=== PATIENT | female | born 1980 | race Caucasian/White ===

== ENCOUNTER → 2016-12-12 | Outpatient (REF) | payer BC | LOC: M LAB REF 11:35 | PROVIDERS: ATTEND Specialist | DX: Z12.4 Encounter for screening for malignant neoplasm of cervix (principal) ==

== ENCOUNTER → 2016-12-25 | Outpatient (REF) | payer BC ==
[2016-12-25 13:16] LABS: ALBUMIN 3.9 GM/DL (3.2-5.2); CALCIUM LEVEL 8.8 MG/DL (8.5-10.1)
== END ==
LOC: M LABDRAW1 11:44
PROVIDERS: ATTEND Internal Medicine Endocrinology, Diabetes & Metabolism
DX: C73 Malignant neoplasm of thyroid gland (principal)

== ENCOUNTER → 2017-03-03 | Outpatient (REF) | payer BC | LOC: M LAB REF 13:08 | PROVIDERS: ATTEND Physician Assistant | DX: R30.0 Dysuria (principal) ==

== ENCOUNTER → 2017-04-01 | Outpatient (REF) | payer BC, MEDICAID, SELFPAY ==
[2017-04-01 12:14] LABS: FREE T4 1.15 NG/DL (0.76-1.46)
== END ==
LOC: M LABDRAW1 10:55
PROVIDERS: ATTEND Internal Medicine Endocrinology, Diabetes & Metabolism
DX: E55.9 Vitamin D deficiency, unspecified (principal); E89.0 Postprocedural hypothyroidism

== ENCOUNTER → 2017-06-17 | Outpatient (REF) | payer OTHER | LOC: M LAB REF 12:22 | PROVIDERS: ATTEND Physician Assistant | DX: N39.0 Urinary tract infection, site not specified (principal) ==

== ENCOUNTER → 2017-06-19 | Outpatient (CLI) | payer OTHER ==
[2017-06-19 19:24] LABS: LUTEINIZING HORMONE 42.4 mIU/mL
[2017-06-22 09:11] LABS: FOLLICLE STIMULATING HORMONE 97.8 mIU/mL
== END ==
LOC: M SMT 11:22
PROVIDERS: ATTEND Specialist
DX: N91.1 Secondary amenorrhea (principal)

== ENCOUNTER → 2018-03-18 | Outpatient (REF) | payer OTHER | LOC: M SFHCLERA 09:02 | DX: L82.0 Inflamed seborrheic keratosis (principal) ==

== ENCOUNTER → 2018-08-24 | Outpatient (REF) | payer OTHER ==
[2018-08-24 11:59] LABS: FREE T4 0.86 NG/DL (0.76-1.46)
== END ==
LOC: M LABDRAW1 10:45
DX: E89.0 Postprocedural hypothyroidism (principal)
CPT/HCPCS: 84443

== ENCOUNTER → 2018-09-15 | Outpatient (REF) | payer OTHER ==
[2018-09-15 19:42] LABS: RHEUMATOID FACTOR QUANT < 10.0 IU/ML (<15.0)
[2018-09-15 19:53] LABS: TOTAL 25(OH) VITAMIN D 28.1 NG/ML (30.0-100.0)
[2018-09-18 00:26] LABS: ANA (HEP2) Positive (.); Lyme Disease IgG/IgM Antibodie <0.91 ISR (0.00-0.90); Lyme Disease IgM Ab Quantitati <0.80 index (0.00-0.79)
== END ==
LOC: M SFHCADAM 15:14
PROVIDERS: ATTEND Physician Assistant
DX: G89.29 Other chronic pain (principal); M54.2 Cervicalgia

== ENCOUNTER → 2018-10-14 | Outpatient (REF) | payer OTHER ==
[2018-10-14 16:20] LABS: THYROID STIMULATING HORMONE 0.295 uIU/ML (0.358-3.740)
[2018-10-14 16:34] LABS: ESTRADIOL 52.4 PG/ML; LUTEINIZING HORMONE 52.6 mIU/mL
[2018-10-14 16:35] LABS: FOLLICLE STIMULATING HORMONE 86.2 mIU/mL
== END ==
LOC: M LABDRAWP 15:47 → M LAB REF 15:47
PROVIDERS: ATTEND Internal Medicine Endocrinology, Diabetes & Metabolism
DX: C73 Malignant neoplasm of thyroid gland (principal)

== ENCOUNTER → 2018-10-18 | Outpatient (CLI) | payer OTHER ==
--- NOTE | 2018-10-18 12:47 | REP ---
MR CERVICAL SPINE WITHOUT CONTRAST: HISTORY: Cervicalgia. A small central disc protrusion is present at the C4-5 level. There is minimal effacement of the thecal sac without spinal cord compression. The C4 neural foramina are patent. A small central disc protrusion is present at the C5-6 level. There is minimal effacement of the thecal sac without spinal cord compression. The C5 neural foramina are patent A small central disc protrusion is present at the C6-7 level. There is minimal effacement of the thecal sac without spinal cord compression. The C7 neural foramina are patent. There is no other disc bulge or herniation. The remaining neural foramina are patent. The spinal cord is normal in signal intensity. Normal signal intensity is present in the cervical vertebral bodies. IMPRESSION: There is cervical spondylosis at the C4-5 through C6-7 levels without spinal cord compression. ? Electronically Signed by Isaac Woods MD 10/18/2018 01:09 P
== END ==
LOC: M RAD 10:58
PROVIDERS: ATTEND Physician Assistant
DX: R76.8 Other specified abnormal immunological findings in serum (principal); M47.812 Spondylosis without myelopathy or radiculopathy, cervical region; M54.2 Cervicalgia

== ENCOUNTER → 2019-01-24 | Outpatient (REF) | payer OTHER ==
[2019-01-24 12:08] LABS: APPEARANCE, URINE HAZY (CLEAR); BACTERIA, URINE AUTO NEGATIVE (NEGATIVE); BILIRUBIN, URINE AUTO NEGATIVE (NEGATIVE); BLOOD, URINE BLOOD NEGATIVE (NEGATIVE); COLOR, URINE YELLOW (YELLOW); GLUCOSE, URINE (UA) AUTO NEGATIVE (NEGATIVE); KETONE, URINE AUTO NEGATIVE (NEGATIVE); LEUKOCYTE ESTERASE, URINE AUTO NEGATIVE (NEGATIVE); NITRITE, URINE AUTO NEGATIVE (NEGATIVE); PROTEIN, URINE AUTO NEGATIVE (NEGATIVE); RBC, URINE AUTO 2 /HPF (0-3); SPECIFIC GRAVITY URINE AUTO 1.017 (1.002-1.035); SQUAMOUS EPITHELIAL CELL UR AU 2 /HPF (0-6); UROBILINOGEN, URINE AUTO 0.2 mg/dL (0.0-2.0); WBC, URINE AUTO 1 /HPF (0-3)
[2019-01-24 12:13] LABS: BASO % 0.7 % (0.0-1.0); EOS # 0.1 10^3/uL (0.0-0.50); EOS % 1.8 % (0.0-3.0); HEMATOCRIT 41.2 % (36.0-47.0); LYMPH # 1.2 10^3/uL (1.5-4.5); LYMPH % 25.8 % (24.0-44.0); MEAN CORPUSCULAR HEMOGLOBIN 30.4 pg (27.0-33.0); MEAN CORPUSCULAR VOLUME 89.6 fl (80.0-96.0); MONO # 0.3 10^3/uL (0.0-0.8); NEUTROPHILS # 2.9 10^3/uL (1.8-7.7); NEUTROPHILS % 65.5 % (36.0-66.0); PLATELET COUNT, AUTOMATED 171 10^3/uL (150-450); WHITE BLOOD COUNT 4.5 10^3/uL (4.0-10.0)
[2019-01-24 12:18] LABS: ALBUMIN 4.3 GM/DL (3.2-5.2); ALT/SGPT 17 U/L (12-78); BILIRUBIN,TOTAL 1.3 MG/DL (0.2-1.0); BLOOD UREA NITROGEN 16 MG/DL (7-18); CALCIUM LEVEL 8.7 MG/DL (8.5-10.1); CARBON DIOXIDE LEVEL 27 MEQ/L (21-32); CHLORIDE LEVEL 106 MEQ/L (98-107); COMPLEMENT C3 102 MG/DL (90-180); COMPLEMENT C4 17 MG/DL (10-40); CREATININE FOR GFR 0.69 MG/DL (0.55-1.30); GLOMERULAR FILTRATION RATE > 60.0 (>60); GLUCOSE, FASTING 81 MG/DL (70-100); POTASSIUM SERUM 3.9 MEQ/L (3.5-5.1); SODIUM LEVEL 139 MEQ/L (136-145); TOTAL PROTEIN 7.3 GM/DL (6.4-8.2)
[2019-01-24 12:59] LABS: ERYTHROCYTE SEDIMENTATION RATE 8 mm/hr (0-20)
[2019-01-25 14:13] LABS: RNP ANTIBODY 0.2 AI (0.0-0.9); SMITHS ANTIBODY < 0.2 AI (0.0-0.9); SSA SJOGRENS A <0.2 AI (0.0-0.9); SSB SJOGRENS B <0.2 AI (0.0-0.9)
== END ==
LOC: M SFHCPLAZ 09:59
PROVIDERS: ATTEND Internal Medicine Rheumatology
DX: R76.8 Other specified abnormal immunological findings in serum (principal)

== ENCOUNTER → 2019-04-08 | Outpatient (REF) | payer OTHER ==
[2019-04-08 11:59] LABS: FREE T4 0.82 NG/DL (0.76-1.46); THYROID STIMULATING HORMONE 0.083 uIU/ML (0.358-3.740)
== END ==
LOC: M LABDRAW1 08:42
PROVIDERS: ATTEND Internal Medicine Endocrinology, Diabetes & Metabolism
DX: E89.0 Postprocedural hypothyroidism (principal)

== ENCOUNTER → 2019-05-09 | Outpatient (CLI) | payer OTHER ==
--- NOTE | 2019-05-09 14:47 | REP ---
REASON: Pain. PRIORS: None. FINDINGS: No acute fracture or destructive osseous lesion. There is a minimal retrocalcaneal heel spur. Electronically Signed by Alcon De La Torre DO 05/09/2019 04:47 P
== END ==
LOC: M ADAMS 11:43
PROVIDERS: ATTEND Physician Assistant
DX: M79.672 Pain in left foot (principal)

== ENCOUNTER → 2019-08-11 | Outpatient (CLI) | payer OTHER ==
[2019-08-16 14:07] LABS: HPV HYBRID CAPTURE II Negative (Negative)
== END ==
LOC: M SMT 08:55
PROVIDERS: ATTEND Specialist
DX: Z12.4 Encounter for screening for malignant neoplasm of cervix (principal)

== ENCOUNTER → 2019-08-15 | Outpatient (CLI) | payer OTHER ==
--- NOTE | 2019-08-15 09:28 | REPMRS ---
Patient History The patient states she had a clinical breast exam in 2018. Family history of breast cancer at age 65 in mother, breast cancer at age 48 in maternal aunt, breast cancer in maternal grandmother, prostate cancer at age 45 in father, prostate cancer in paternal grandfather. Taking unspecified hormones for 6 years. 3D TOMOSYNTHESIS WAS PERFORMED. Digital Mammo Screening Bilat: August 15, 2019 - Exam #: [id number] Bilateral CC and MLO view(s) were taken. Technologist: Meena Hdz, Technologist FINDINGS: The breast tissue is heterogeneously dense. This may lower the sensitivity of mammography. There is no evidence of cancer on this mammogram. Assessment: BI-RADS/ACR category 2 mammogram. Benign Findings. Recommendation Routine screening mammogram of both breasts in 1 year (for women over age 40). This mammogram was interpreted with the aid of an FDA-approved computer-aided dectection system. THE LIFETIME RISK OF BREAST CANCER IS 28.7%, THEREFORE SUPPLEMENTAL SCREENING MRI OF THE BREASTS IS RECOMMENDED IN 6 MONTHS. Electronically Signed By: Tommy Finch MD 08/15/19 0902
== END ==
LOC: M RAD 08:51
PROVIDERS: ATTEND Specialist
DX: Z12.31 Encounter for screening mammogram for malignant neoplasm of breast (principal); Z80.3 Family history of malignant neoplasm of breast; Z79.890 Hormone replacement therapy; R92.2 Inconclusive mammogram

== ENCOUNTER → 2019-09-01 | Outpatient (CLI) | payer OTHER ==
--- NOTE | 2019-09-09 02:55 | ECWPNPC ---
PATIENT NAME: ULISES TEJADA : 1980 GENDER: FEMALE VISIT DATE: 09/01/2019 DISCHARGE DATE: 09/01/19 1150 VISIT LOCKED DATE TIME: PHYSICIAN: BRANDON TORRE RESOURCE: BRANDON TORRE REASON FOR APPOINTMENT 1. CERVICALGIA PREADMISSION DONE HISTORY OF PRESENT ILLNESS PAIN SCREENIN38 Y/O FEMALE REFERED BY RADHA LEY FOR EVALUATION OF PERSISTENT POSTERIOR NECK BURNING,ACHING AND STABBING PAIN.FINISHED A SESSION OF PT ONE MONTH AGO THAT HELPED WITH ROJM OF NECK BUT SHE FEELS BURNING PAIN HAS GOTTEN WORSE OVER THE PAST FEW MONTHS.PAIN ESCALATES WHEN LAYING IN SUPINE POSITION AND WITH FLEXION OF NECK.SHE HAS AN AREA OF SWELLING AT BASE OF NECK THAT SHE FEELS HAS GOTTEN MORE PROMINENT OVER THE PAST YEAR.USING FLEXERIL ,5MG PRN WITHOUT MUCH IMPROVEMENT.PAIN RANGES FROM 4-8/10 VAS.DENIES RECENT FEVER,ILLNESS OR WEIGHT LOSS. PATIENT HAS A COMPLAINT OF ACUTE OR CHRONIC PAIN :YES FALL RISK SCREENING: SCREENING :NO FALLS REPORTED IN THE LAST YEAR CURRENT MEDICATIONS TAKING VITAMIN D-3 1000 UNIT CAPSULE 3 CAPSULE ORALLY ONCE A DAY TAKING ARMOUR THYROID 90 MG TABLET 1 TABLET ON AN EMPTY STOMACH ORALLY ONCE A DAY TAKING CYCLOBENZAPRINE HCL 5 MG TABLET 1 TABLET NEEDED ORALLY THREE TIMES A DAY NEEDED FRO NECK PAIN TAKING CALCIUM 1200 4304-9765 MG-UNIT TABLET CHEWABLE 1 TABLET WITH A MEAL ORALLY ONCE A DAY MEDICATION LIST REVIEWED AND RECONCILED WITH THE PATIENT PAST MEDICAL HISTORY HEADACHES (IMPROVED SINCE STOPPING ORTHO EVRA PATCH) MULTINODULAR THYROID/GOITER , THYROID ULTRASOUND 12/09/11 MULTINODULAR THYROID/ BIOPSY 07/09(DR RAZA) SUGGESTED BACKGROUND LYMPHOCYTIC THYROIDITIS. RECOMMENDED REPEAT ULTRASOUND AND BIOPSY ONE YEAR (07/10). [facility] SECOND OPINION - UNDERWENT THYROIDECTOMY FAMILY H/O MELANOMA - MOTHER/AUNT HYPOTHYROIDISM DUE TO THYROIDECTOMY ALLERGIES SUMAC: ANAPHYLAXIS - ALLERGY SURGICAL HISTORY 05/2008, 01/2012 ALL FOUR WISDOM TEETH EXTRACTED 1998 THYROID BX-NEGATIVE 07/09 ABLASION-UTERUS 2014 THYROIDECTOMY FAMILY HISTORY FATHER: ALIVE 61 YRS, SQUAMOUS CELL CARCINOMA MOUTH, THYROID CANCER, PROSTATE CANCER MOTHER: ALIVE 61 YRS, HYPOTHYROIDISM, MELANOMA ON FACE SIBLINGS: 35,38 YRS MATERNAL AUNT: BREAST CANCER MELANOMA 2 BROTHER(S) - HEALTHY. 1 SON(S) , 1 DAUGHTER(S) - HEALTHY. FAMILY HISTORY OF MM. SOCIAL HISTORY GENERAL: TOBACCO USE ARE YOU A:FORMER SMOKER FORMER SMOKER HOW LONG HAS IT BEEN SINCE YOU LAST SMOKED?5-10 YEARS DIET: REGULAR. LANGUAGE YORUBA. DOMESTIC VIOLENCE NONE. RECREATIONAL DRUG USE DENIES. EXERCISE: NONE. LEARNING BARRIERS / SPECIAL NEEDS CHANGE FROM LAST VISIT?NO BARRIERS TO LEARNING?NO HEARING IMPAIRED?NO VISION IMPAIRED?NO COGNITIVELY IMPAIRED?NO READINESS TO LEARN?YES LEARNING PREFERENCES?NO LEARNING CAPABILITIES PRESENT?YES EMOTIONAL BARRIERS?NO SPECIAL DEVICES?NO OBSTETRICS NURSE PRACTITIONER NEEDED?NO LATEX QUESTIONNAIRE LATEX ALLERGY : HAVE YOU EVER DEVELOPED ANY TYPE OF REACTION AFTER HANDLING LATEX PRODUCTS SUCH RUBBER GLOVES, CONDOMS, DIAPHRAGMS, BALLOONS, SOCKS, OR UNDERWEAR?NO LATEX ALLERGY : HAVE YOU EVER DEVELOPED ANY TYPE OF REACTION DURING OR AFTER DENTAL APPOINTMENT, VAGINAL/RECTAL EXAMINATION, SURGICAL PROCEDURE, OR ANY OTHER EXPOSURE?NO LATEX RISK : HAVE YOU EVER HAD ANY DIFFICULTY BREATHING OR HIVES AFTER EATING OR HANDLING ANY FRUITS, OR VEGETABLES; SUCH KIWI, BANANAS, STONE FRUITS, OR CHESTNUTSNO LATEX RISK : DO YOU HAVE A PREVIOUS PERSONAL HISTORY OF MORE THAN NINE SURGERIES, SPINA BIFIDA, OR REPEATED CATHERIZATIONS? NO LATEX RISK : ARE YOU FREQUENTLY EXPOSED TO LATEX PRODUCTS IN YOUR OCCUPATION?NO DATE ASKED : 08/31/2019 CAFFEINE NONE. ADVANCE DIRECTIVE ADVANCE DIRECTIVE DISCUSSED WITH PATIENT:YES PT STATES THAT SHE CURRENTLY DOES NOT HAVE HCP, DECLINES PAPERWORK AND ASSISTANCE WITH PAPERWORK. DS SCIENTOLOGY NO RESTORATIONIST BELIEFS THAT WOULD IMPACT HEALTH CARE. ALCOHOL SCREENING DID YOU HAVE A DRINK CONTAINING ALCOHOL IN THE PAST YEAR?NO POINTS0 INTERPRETATIONNEGATIVE OCCUPATION: FT STUDENT, [employer]. SEXUAL HX HAD SEX IN THE LAST 12 MONTHS (VAGINAL, ORAL, OR ANAL)?YES WITHMEN ONLY USE PROTECTION?NO LMP:2014 HAVE YOU EVER HAD AN STD?NO PREADMISSION SCREENING COMPLETED. 08/31/19 DS. HOSPITALIZATION/MAJOR DIAGNOSTIC PROCEDURE CHILDBIRTH SURGERY REVIEW OF SYSTEMS REVIEWED BY: PROVIDER: BRANDON LAZARO . CONSTITUTIONAL: ANY CHANGE IN YOUR MEDICAL CONDITION? NO . CHILLS NO . FEVER NO . INFECTION: DO YOU HAVE NEW INFECTIONS? NO . DO YOU HAVE HISTORY OF MRSA? NO . MUSCULOSKELETAL: ANY NEW PATTERNS OF PAIN OR NUMBNESS? YES, BILAT HAND NUMBNESS X 1 DAY . SYTEMIC LUPUS NO . GASTROENTEROLOGY: ANY NEW CHANGE IN BOWEL CONTROL? NO . BARRETTS ESOPHAGUS NO . CIRRHOSIS NO . HEPATITIS NO . LIVER FAILURE NO . ACID REFLUX NO . UNEXPLAINED WEIGHT LOSS NO . GENITOURINARY: ANY NEW CHANGE IN BLADDER CONTROL? NO . IS THERE A CHANCE YOU COULD BE ? NO . HEMATOLOGY/LYMPH: DO YOU TAKE ANY BLOOD THINNERS? (FOR EXAMPLE- COUMADIN, PLAVIX, AGGRENOX, PLATEL, PRADAXA, OR XARELTO) NO . WHEN WAS YOUR LAST DOSE? DATE: TIME: . LOW PLATELET COUNT NO . SICKLE CELL DISEASE NO . VON WILLIEBRANDS NO . FACTOR V LEIDEN NO . THALLASEMIA NO . ANEMIA NO . EASY BRUISING NO . NEUROLOGY: HAVE YOU FALLEN IN THE PAST 12 MONTHS? NO . ANY NEW EXTREMITY NUMBNESS OR WEAKNESS? NO . HEAD INJURY NO . DEMENTIA NO . CEREBRAL PALSY NO . MULTIPLE SCLEROSIS NO . DIZZINESS NO . HEADACHE NO . STROKES NO . VERTIGO NO . CARDIOLOGY: DO YOU HAVE A PACEMAKER OR DEFIBRILLATOR? NO . ANGINA NO . HEART ATTACK NO . HEART SURGERY NO . CONGESTIVE HEART FAILURE/FLUID OVERLOAD NO . CHEST PAIN NO . HIGH BLOOD PRESSURE NO . IRREGULAR HEART BEAT NO . RESPIRATORY: HAVE YOU BEEN SICK IN THE PAST WEEK? NO . FEVER NO . FLU LIKE SYMPTOMS? NO . CPAP NO . BYPAP NO . ASTHMA NO . EMPHYSEMA NO . CHRONIC LUNG DISEASES NO . SHORTNESS OF BREATH ON EXERTION NO . COUGH NO . SNORING NO . INTEGUMENTARY: DO YOU HAVE ANY RASHES OR OPEN SORES? NO . ALLERGIC/IMMUNO: ARE YOU ALLERGIC TO IV DYE? NO . ANY NEW ALLERGIES? NO . PSYCHIATRIC: DO YOU HAVE THOUGHTS OF HURTING YOURSELF OR SOMEONE ELSE? NO . ARE YOU ABUSED, NEGLECTED, OR IN AN UNSAFE ENVIRONMENT? NO . ENDOCRINOLOGY: ARE YOU DIABETIC? NO . THYROID DISORDER HYPOTHYROID, YES . OTHER: DO YOU NEED ANY PRESCRIPTIONS? NO . IF YES, PLEASE LIST: ____ . ANY NEW PROBLEMS WITH YOUR MEDICATIONS? NO . WHEN DID YOU LAST EAT? ____ . WHEN DID YOU LAST DRINK? ____ . WHAT DID YOU LAST DRINK? ____ . NAME OF PERSON DRIVING YOU HOME? ____ . DO YOU HAVE ANY OTHER QUESTIONS OR CONCERNS YES, RECEIVED FLU VACCINE 08/14/19 . VITAL SIGNS WT 172 LBS, HT 68.5 IN, BMI 25.77 INDEX, BP 113/71 MM HG, HR 68 /MIN, RR 16 /MIN, TEMP 98.1 F, OXYGEN SAT % 100%, NA INITIALS SC 11:04. EXAMINATION GENERAL EXAMINATION: GENERALNO ACUTE DISTRESS, WELL NOURISHED AND HYDRATED. ACCOMPANIES IN EXAM ROOM. PSYCHAPPROPRIATE MOOD AND AFFECT . NECK:NO LYMPHADENOPATHY, SUPPLE, NO THYROMEGALLY, NO JVD OR BRUITS. LUNGS:CLEAR TO AUSCULTATION BILATERALLY, NO WHEEZES, RHONCHI, RALES. HEART:NO MURMURS, REGULAR RATE AND RHYTHM. ABDOMEN:SOFT, NON-TENDER, NO ORGANOMEGALY, BOWEL SOUNDS ARE NORMAL. THORACIC SPINE 6 CM CIRCULAR AREA OF SWELLING AT CERVICOTHORACIC [id number].NONMOBILE.NO REDDNESS.PETECHIAL STRIAE OVER MASS.TENDER WITH PALPATION. ASSESSMENTS THORACIC SPINE PAIN - M54.6 (PRIMARY) TREATMENT THORACIC SPINE PAIN NOTES: MRI POSTERIOR CHEST WALL W AND W/O CONTRAST-ATTN SOFT TISSUE SWELLING UPPER THORACIC . PROCEDURE CODES FA211 ESTABILISHED PATIENT [facility] CHARGE DISPOSITION & COMMUNICATION FOLLOW UP 4-6 WKS (REASON: MRI REVIEW) ELECTRONICALLY SIGNED BY IVETH CHOW ON 09/08/2019 AT 09:02 AM EST DISCLAIMER : THIS IS A VISIT SUMMARY EXTRACTED FROM THE [employer] CHART. IT IS NOT A COPY OF THE [employer] PROGRESS NOTE. OWEN
== END ==
LOC: M PAIN 10:00
PROVIDERS: ATTEND Nurse Practitioner Family
DX: M54.6 Pain in thoracic spine (principal); E03.9 Hypothyroidism, unspecified; Z87.891 Personal history of nicotine dependence; Z79.899 Other long term (current) drug therapy

== ENCOUNTER → 2019-09-09 | Outpatient (CLI) | payer OTHER ==
--- NOTE | 2019-09-09 11:30 | REP ---
Three views thoracic spine: 09/26/2019. Indication: Thoracic pain. Comparison: None. Findings: Thoracic vertebral body alignment is anatomic. There is no acute fracture, subluxation or dislocation. Distended colonic bowel loops are present, particularly within the splenic flexure with slight elevation of the left hemidiaphragm. The visualized lungs are clear. Impression: No acute osseous injuries of the thoracic spine. Gaseous distension of predominantly left-sided colonic bowel loops. Electronically Signed by Chetan Lopez DO 09/09/2019 11:21 A
== END ==
LOC: M RAD 09:16
PROVIDERS: ATTEND Nurse Practitioner Family
DX: M79.89 Other specified soft tissue disorders (principal); R14.0 Abdominal distension (gaseous)

== ENCOUNTER → 2019-09-15 | Outpatient (CLI) | payer OTHER ==
--- NOTE | 2019-09-30 01:51 | ECWPNPC ---
PATIENT NAME: ULISES TEJADA : 1980 GENDER: FEMALE VISIT DATE: 09/15/2019 DISCHARGE DATE: 09/15/19 1401 VISIT LOCKED DATE TIME: PHYSICIAN: BRANDON TORRE RESOURCE: BRANDON TORRE REASON FOR APPOINTMENT 1. REVIEW X-RAY HISTORY OF PRESENT ILLNESS HISTORY OF PRESENT ILLNESS: HERE FOR F/U OF CHRONIC NECK PAIN.XRAY OF THORACIC SPINE ORDERED AT LAST VISIT IS REVIEWED WITH PATIENT AND IS WITHIN NORMAL LIMITS.CONTINUES WITH BURNING PAIN IN C7/T1-4 AREA(CERVICOTHORACIC JUNCTION)RATING PAIN VAS 5-8/10.PAIN IS AT CERVICOTHORACIC JUNCTION AND DESCRIBED INTERMITTENT BURNINGPAIN WHICH OFTEN TIMES WILL WAKE HER FROM SLEEP. PAIN THE PATIENT DESCRIBES THE PAIN... FALL RISK SCREENING: SCREENING :NO FALLS REPORTED IN THE LAST YEAR CURRENT MEDICATIONS TAKING VITAMIN D-3 1000 UNIT CAPSULE 3 CAPSULE ORALLY ONCE A DAY TAKING ARMOUR THYROID 90 MG TABLET 1 TABLET ON AN EMPTY STOMACH ORALLY ONCE A DAY TAKING CYCLOBENZAPRINE HCL 5 MG TABLET 1 TABLET NEEDED ORALLY THREE TIMES A DAY NEEDED FRO NECK PAIN TAKING CALCIUM 1200 8965-5393 MG-UNIT TABLET CHEWABLE 1 TABLET WITH A MEAL ORALLY ONCE A DAY MEDICATION LIST REVIEWED AND RECONCILED WITH THE PATIENT PAST MEDICAL HISTORY HEADACHES (IMPROVED SINCE STOPPING ORTHO EVRA PATCH) MULTINODULAR THYROID/GOITER , THYROID ULTRASOUND 12/09/11 MULTINODULAR THYROID/ BIOPSY 07/09(DR RAZA) SUGGESTED BACKGROUND LYMPHOCYTIC THYROIDITIS. RECOMMENDED REPEAT ULTRASOUND AND BIOPSY ONE YEAR (07/10). [facility] SECOND OPINION - UNDERWENT THYROIDECTOMY FAMILY H/O MELANOMA - MOTHER/AUNT HYPOTHYROIDISM DUE TO THYROIDECTOMY ALLERGIES [facility]: ANAPHYLAXIS - ALLERGY SURGICAL HISTORY 05/2008, 01/2012 ALL FOUR WISDOM TEETH EXTRACTED 1998 THYROID BX-NEGATIVE 07/09 ABLASION-UTERUS 2015 THYROIDECTOMY FAMILY HISTORY FATHER: ALIVE 61 YRS, SQUAMOUS CELL CARCINOMA MOUTH, THYROID CANCER, PROSTATE CANCER MOTHER: ALIVE 61 YRS, HYPOTHYROIDISM, MELANOMA ON FACE SIBLINGS: 35,38 YRS MATERNAL AUNT: BREAST CANCER MELANOMA 2 BROTHER(S) - HEALTHY. 1 SON(S) , 1 DAUGHTER(S) - HEALTHY. FAMILY HISTORY OF MM. SOCIAL HISTORY GENERAL: TOBACCO USE ARE YOU A:FORMER SMOKER FORMER SMOKER HOW LONG HAS IT BEEN SINCE YOU LAST SMOKED?5-10 YEARS DIET: REGULAR. LANGUAGE ALBANIAN. DOMESTIC VIOLENCE NONE. RECREATIONAL DRUG USE DENIES. EXERCISE: NONE. LEARNING BARRIERS / SPECIAL NEEDS CHANGE FROM LAST VISIT?NO BARRIERS TO LEARNING?NO HEARING IMPAIRED?NO VISION IMPAIRED?NO COGNITIVELY IMPAIRED?NO READINESS TO LEARN?YES LEARNING PREFERENCES?NO LEARNING CAPABILITIES PRESENT?YES EMOTIONAL BARRIERS?NO SPECIAL DEVICES?NO CARGO INSPECTOR NEEDED?NO PAIN CLINIC PFS, CLERGY, PUBLIC HEALTH REFERRALS HAS THE PATIENT BEEN EDUCATED REGARDING HIS/HER PLAN OF CARE?YES HAS THE PATIENT BEEN EDUCATED REGARDING PAIN, THE RISK FOR PAIN, THE IMPORTANCE OF EFFECTIVE PAIN MANAGEMENT, AND THE PAIN ASSESSMENT PROCESS?YES LATEX QUESTIONNAIRE LATEX ALLERGY : HAVE YOU EVER DEVELOPED ANY TYPE OF REACTION AFTER HANDLING LATEX PRODUCTS SUCH RUBBER GLOVES, CONDOMS, DIAPHRAGMS, BALLOONS, SOCKS, OR UNDERWEAR?NO LATEX ALLERGY : HAVE YOU EVER DEVELOPED ANY TYPE OF REACTION DURING OR AFTER DENTAL APPOINTMENT, VAGINAL/RECTAL EXAMINATION, SURGICAL PROCEDURE, OR ANY OTHER EXPOSURE?NO LATEX RISK : HAVE YOU EVER HAD ANY DIFFICULTY BREATHING OR HIVES AFTER EATING OR HANDLING ANY FRUITS, OR VEGETABLES; SUCH KIWI, BANANAS, STONE FRUITS, OR CHESTNUTSNO LATEX RISK : DO YOU HAVE A PREVIOUS PERSONAL HISTORY OF MORE THAN NINE SURGERIES, SPINA BIFIDA, OR REPEATED CATHERIZATIONS? NO LATEX RISK : ARE YOU FREQUENTLY EXPOSED TO LATEX PRODUCTS IN YOUR OCCUPATION?NO DATE ASKED : 09/15/2019 CAFFEINE NONE. ADVANCE DIRECTIVE ADVANCE DIRECTIVE DISCUSSED WITH PATIENT:YES PT STATES THAT SHE CURRENTLY DOES NOT HAVE HCP, DECLINES PAPERWORK AND ASSISTANCE WITH PAPERWORK. 09/15/19 GNOSTICIST NO LATTER DAY BELIEFS THAT WOULD IMPACT HEALTH CARE. ALCOHOL SCREENING DID YOU HAVE A DRINK CONTAINING ALCOHOL IN THE PAST YEAR?NO POINTS0 INTERPRETATIONNEGATIVE OCCUPATION: FT STUDENT, [employer]. SEXUAL HX HAD SEX IN THE LAST 12 MONTHS (VAGINAL, ORAL, OR ANAL)?YES WITHMEN ONLY USE PROTECTION?NO LMP:2014 HAVE YOU EVER HAD AN STD?NO PREADMISSION SCREENING COMPLETED. 08/31/19 DSREVIEWED WITH PT. 09/15/19 1330 BV. HOSPITALIZATION/MAJOR DIAGNOSTIC PROCEDURE CHILDBIRTH SURGERY REVIEW OF SYSTEMS REVIEWED BY: PROVIDER: BRANDON LAZARO . CONSTITUTIONAL: ANY CHANGE IN YOUR MEDICAL CONDITION? NO . CHILLS NO . FEVER NO . INFECTION: DO YOU HAVE NEW INFECTIONS? NO . DO YOU HAVE HISTORY OF MRSA? NO . MUSCULOSKELETAL: ANY NEW PATTERNS OF PAIN OR NUMBNESS? NO . GASTROENTEROLOGY: ANY NEW CHANGE IN BOWEL CONTROL? NO . GENITOURINARY: ANY NEW CHANGE IN BLADDER CONTROL? NO . IS THERE A CHANCE YOU COULD BE ? NO . HEMATOLOGY/LYMPH: DO YOU TAKE ANY BLOOD THINNERS? (FOR EXAMPLE- COUMADIN, PLAVIX, AGGRENOX, PLATEL, PRADAXA, OR XARELTO) NO . WHEN WAS YOUR LAST DOSE? DATE: TIME: . NEUROLOGY: HAVE YOU FALLEN IN THE PAST 12 MONTHS? NO . ANY NEW EXTREMITY NUMBNESS OR WEAKNESS? NO . CARDIOLOGY: DO YOU HAVE A PACEMAKER OR DEFIBRILLATOR? NO . RESPIRATORY: HAVE YOU BEEN SICK IN THE PAST WEEK? NO . FEVER NO . FLU LIKE SYMPTOMS? NO . COUGH NO . INTEGUMENTARY: DO YOU HAVE ANY RASHES OR OPEN SORES? NO . ALLERGIC/IMMUNO: ARE YOU ALLERGIC TO IV DYE? NO . ANY NEW ALLERGIES? NO . PSYCHIATRIC: DO YOU HAVE THOUGHTS OF HURTING YOURSELF OR SOMEONE ELSE? NO . ARE YOU ABUSED, NEGLECTED, OR IN AN UNSAFE ENVIRONMENT? NO . ENDOCRINOLOGY: ARE YOU DIABETIC? NO . OTHER: DO YOU NEED ANY PRESCRIPTIONS? NO . IF YES, PLEASE LIST: ____ . ANY NEW PROBLEMS WITH YOUR MEDICATIONS? NO . WHEN DID YOU LAST EAT? ____ . WHEN DID YOU LAST DRINK? ____ . WHAT DID YOU LAST DRINK? ____ . NAME OF PERSON DRIVING YOU HOME? ____ . DO YOU HAVE ANY OTHER QUESTIONS OR CONCERNS NO . VITAL SIGNS WT 169.6 LBS, HT 68.5 IN, BMI 25.41 INDEX, BP 105/71 MM HG, HR 88 /MIN, RR 16 /MIN, TEMP 97.2 F, OXYGEN SAT % 99%, NA INITIALS 1335, REVIEWED BY: BV. EXAMINATION GENERAL EXAMINATION: GENERALNO ACUTE DISTRESS, WELL NOURISHED AND HYDRATED. ACCOMPANIES IN EXAM ROOM. PSYCHAPPROPRIATE MOOD AND AFFECT . LUNGS:CLEAR TO AUSCULTATION BILATERALLY, NO WHEEZES, RHONCHI, RALES. HEART:NO MURMURS, REGULAR RATE AND RHYTHM. THORACIC SPINE 6 CM CIRCULAR AREA OF SWELLING AT CERVICOTHORACIC [id number].NONMOBILE.NO REDDNESS.PETECHIAL STRIAE OVER MASS.TENDER WITH PALPATION. ASSESSMENTS THORACIC SPINE PAIN - M54.6 (PRIMARY) SOFT TISSUE SWELLING OF BACK - R60.9 TREATMENT THORACIC SPINE PAIN MRI : THORACIC [id number] NOTES: THORACIC SPINE XRAY IS REVIEWED AND WITHIN NORMAL LIMITS.CONTINUES WITH BURNING PAIN AT CERVICOTHORACIC JUNCTION WITH SOFT TISSUE SWELLING,DISCOLORATION AND BURNING PAIN AT THIS SITE THAT PERSISTS.A MRI OF THORACIC SPINE IS MEDICALLY INDICATED TO EVALUATE SOFT TISSUE SWELLING TO OBTAIN DIAGNOSIS AND FORMULATE A TREATMENT PLAN. SOFT TISSUE SWELLING OF BACK MRI : THORACIC [id number] PROCEDURE CODES FA211 ESTABILISHED PATIENT [facility] CHARGE DISPOSITION & COMMUNICATION FOLLOW UP 4-6WKS (REASON: SOFT TISSUER SWELLING THORACIC SPINE/MRI THORACIC REVIEW) ELECTRONICALLY SIGNED BY IVETH CHOW ON 09/29/2019 AT 01:45 PM EST DISCLAIMER : THIS IS A VISIT SUMMARY EXTRACTED FROM THE [employer] CHART. IT IS NOT A COPY OF THE [employer] PROGRESS NOTE. OWEN
== END ==
LOC: M PAIN 13:30
PROVIDERS: ATTEND Nurse Practitioner Family
DX: M54.6 Pain in thoracic spine (principal); R60.9 Edema, unspecified

== ENCOUNTER → 2019-09-30 | Outpatient (CLI) | payer OTHER ==
--- NOTE | 2019-09-30 10:19 | REP ---
MRI thoracic spine: 09/30/2019. Indication: Thoracic spine pain. Comparison: None. Technique: Multiplanar short and long TR sequences of the thoracic spine were obtained without IV gadolinium enhancement. Findings: Vertebral body alignment is within anatomical limits. Endplate degenerative signal changes are present within the inferior aspect of T7. There is disc desiccation at T6/T7 and T7/T. No focal disc herniations are present. There are no areas of significant spinal canal or neural foraminal narrowing. The visualized cord is normal. Impression: No focal thoracic disc herniation or areas of significant spinal canal / neural foraminal narrowing. Electronically Signed by Chetan Lopez DO 09/30/2019 10:11 A
== END ==
LOC: M RAD 07:34
PROVIDERS: ATTEND Nurse Practitioner Family
DX: M54.6 Pain in thoracic spine (principal); R60.9 Edema, unspecified

== ENCOUNTER → 2019-10-06 | Outpatient (CLI) | payer OTHER ==
--- NOTE | 2019-10-19 03:02 | ECWPNPC ---
PATIENT NAME: ULISES TEJADA : 1980 GENDER: FEMALE VISIT DATE: 10/06/2019 DISCHARGE DATE: 10/06/19 1236 VISIT LOCKED DATE TIME: PHYSICIAN: BRANDON TORRE RESOURCE: BRANDON TORRE REASON FOR APPOINTMENT 1. REVIEW MRI HISTORY OF PRESENT ILLNESS HISTORY OF PRESENT ILLNESS: HERE FOR FOLLOW-UP OF PERSISTENT NECK AND UPPER BACK PAIN. REVIEWED MRI OF THE CERVICAL SPINE ORDERED AT LAST VISIT. THIS IS BASICALLY WITHIN NORMAL LIMITS. CONTINUES WITH NECK PAIN AND UPPER BACK PAIN. PAIN IS AGGRAVATED BY FLEXION AND EXTENSION OF NECK. DISCUSSED TREATMENT OPTIONS. RATING PAIN VAS 6-8/10. PAIN THE PATIENT DESCRIBES THE PAIN... FALL RISK SCREENING: SCREENING :NO FALLS REPORTED IN THE LAST YEAR CURRENT MEDICATIONS TAKING VITAMIN D-3 1000 UNIT CAPSULE 3 CAPSULE ORALLY ONCE A DAY TAKING ARMOUR THYROID 90 MG TABLET 1 TABLET ON AN EMPTY STOMACH ORALLY ONCE A DAY TAKING CYCLOBENZAPRINE HCL 5 MG TABLET 1 TABLET NEEDED ORALLY THREE TIMES A DAY NEEDED FRO NECK PAIN TAKING CALCIUM 1200 7416-6927 MG-UNIT TABLET CHEWABLE 1 TABLET WITH A MEAL ORALLY ONCE A DAY NOT-TAKING VALIUM 5 MG TABLET 1 TAB ORALLY 1/2 HR PRE MRI MDD1 NOT-TAKING VALIUM 5 MG TABLET 1 TAB ORALLY 1/2 HR PRE MRI MDD1 NOT-TAKING VALIUM 5 MG TABLET 1 TAB ORALLY 1 TAB 1/2 HR PRE MRI MEDICATION LIST REVIEWED AND RECONCILED WITH THE PATIENT PAST MEDICAL HISTORY HEADACHES (IMPROVED SINCE STOPPING ORTHO EVRA PATCH) MULTINODULAR THYROID/GOITER , THYROID ULTRASOUND 12/09/11 MULTINODULAR THYROID/ BIOPSY 07/09(DR RAZA) SUGGESTED BACKGROUND LYMPHOCYTIC THYROIDITIS. RECOMMENDED REPEAT ULTRASOUND AND BIOPSY ONE YEAR (07/10). [facility] SECOND OPINION - UNDERWENT THYROIDECTOMY FAMILY H/O MELANOMA - MOTHER/AUNT HYPOTHYROIDISM DUE TO THYROIDECTOMY ALLERGIES SUMAC: ANAPHYLAXIS - ALLERGY SURGICAL HISTORY 05/2008, 01/2012 ALL FOUR WISDOM TEETH EXTRACTED 1998 THYROID BX-NEGATIVE 07/09 ABLASION-UTERUS 2015 THYROIDECTOMY FAMILY HISTORY FATHER: ALIVE, SQUAMOUS CELL CARCINOMA MOUTH, THYROID CANCER, PROSTATE CANCER MOTHER: ALIVE, HYPOTHYROIDISM, MELANOMA ON FACE MATERNAL AUNT: BREAST CANCER MELANOMA 2 BROTHER(S) - HEALTHY. 1 SON(S) , 1 DAUGHTER(S) - HEALTHY. FAMILY HISTORY OF MM. SOCIAL HISTORY GENERAL: TOBACCO USE ARE YOU A:FORMER SMOKER FORMER SMOKER HOW LONG HAS IT BEEN SINCE YOU LAST SMOKED?> 10 YEARS DIET: REGULAR. LANGUAGE SRI LANKAN. DOMESTIC VIOLENCE NONE. RECREATIONAL DRUG USE DENIES. EXERCISE: NONE. LEARNING BARRIERS / SPECIAL NEEDS CHANGE FROM LAST VISIT?NO BARRIERS TO LEARNING?NO HEARING IMPAIRED?NO VISION IMPAIRED?NO COGNITIVELY IMPAIRED?NO READINESS TO LEARN?YES LEARNING PREFERENCES?NO LEARNING CAPABILITIES PRESENT?YES EMOTIONAL BARRIERS?NO SPECIAL DEVICES?NO INFORMATION OPERATOR NEEDED?NO PAIN CLINIC PFS, CLERGY, PUBLIC HEALTH REFERRALS HAS THE PATIENT BEEN EDUCATED REGARDING HIS/HER PLAN OF CARE?YES HAS THE PATIENT BEEN EDUCATED REGARDING PAIN, THE RISK FOR PAIN, THE IMPORTANCE OF EFFECTIVE PAIN MANAGEMENT, AND THE PAIN ASSESSMENT PROCESS?YES LATEX QUESTIONNAIRE LATEX ALLERGY : HAVE YOU EVER DEVELOPED ANY TYPE OF REACTION AFTER HANDLING LATEX PRODUCTS SUCH RUBBER GLOVES, CONDOMS, DIAPHRAGMS, BALLOONS, SOCKS, OR UNDERWEAR?NO LATEX ALLERGY : HAVE YOU EVER DEVELOPED ANY TYPE OF REACTION DURING OR AFTER DENTAL APPOINTMENT, VAGINAL/RECTAL EXAMINATION, SURGICAL PROCEDURE, OR ANY OTHER EXPOSURE?NO LATEX RISK : HAVE YOU EVER HAD ANY DIFFICULTY BREATHING OR HIVES AFTER EATING OR HANDLING ANY FRUITS, OR VEGETABLES; SUCH KIWI, BANANAS, STONE FRUITS, OR CHESTNUTSNO LATEX RISK : DO YOU HAVE A PREVIOUS PERSONAL HISTORY OF MORE THAN NINE SURGERIES, SPINA BIFIDA, OR REPEATED CATHERIZATIONS? NO LATEX RISK : ARE YOU FREQUENTLY EXPOSED TO LATEX PRODUCTS IN YOUR OCCUPATION?NO DATE ASKED : 09/15/2019 CAFFEINE NONE. ADVANCE DIRECTIVE ADVANCE DIRECTIVE DISCUSSED WITH PATIENT:YES 10/06/2019 PT STATES THAT SHE CURRENTLY DOES NOT HAVE HCP, DECLINES PAPERWORK AND ASSISTANCE WITH PAPERWORK. JS [employer] NO RESTORATIONISM BELIEFS THAT WOULD IMPACT HEALTH CARE. ALCOHOL SCREENING DID YOU HAVE A DRINK CONTAINING ALCOHOL IN THE PAST YEAR?NO POINTS0 INTERPRETATIONNEGATIVE OCCUPATION: FT STUDENT, [employer]. SEXUAL HX HAD SEX IN THE LAST 12 MONTHS (VAGINAL, ORAL, OR ANAL)?YES WITHMEN ONLY USE PROTECTION?NO LMP:2014 HAVE YOU EVER HAD AN STD?NO PREADMISSION SCREENING COMPLETED. 08/31/19 DSREVIEWED WITH PT. 09/15/19 1330 BVREVIEWED WITH PATIENT 10/06/2019 1154 JS. HOSPITALIZATION/MAJOR DIAGNOSTIC PROCEDURE CHILDBIRTH SURGERY REVIEW OF SYSTEMS REVIEWED BY: PROVIDER: BRANDON LAZARO . CONSTITUTIONAL: ANY CHANGE IN YOUR MEDICAL CONDITION? NO . CHILLS NO . FEVER NO . INFECTION: DO YOU HAVE NEW INFECTIONS? NO . DO YOU HAVE HISTORY OF MRSA? NO . MUSCULOSKELETAL: ANY NEW PATTERNS OF PAIN OR NUMBNESS? NO . GASTROENTEROLOGY: ANY NEW CHANGE IN BOWEL CONTROL? NO . GENITOURINARY: ANY NEW CHANGE IN BLADDER CONTROL? NO . IS THERE A CHANCE YOU COULD BE ? NO . HEMATOLOGY/LYMPH: DO YOU TAKE ANY BLOOD THINNERS? (FOR EXAMPLE- COUMADIN, PLAVIX, AGGRENOX, PLATEL, PRADAXA, OR XARELTO) NO . WHEN WAS YOUR LAST DOSE? DATE: TIME: . NEUROLOGY: HAVE YOU FALLEN IN THE PAST 12 MONTHS? NO . ANY NEW EXTREMITY NUMBNESS OR WEAKNESS? NO . CARDIOLOGY: DO YOU HAVE A PACEMAKER OR DEFIBRILLATOR? NO . RESPIRATORY: HAVE YOU BEEN SICK IN THE PAST WEEK? YES, STATES COLD . FEVER NO . FLU LIKE SYMPTOMS? NO . COUGH YES . INTEGUMENTARY: DO YOU HAVE ANY RASHES OR OPEN SORES? NO . ALLERGIC/IMMUNO: ARE YOU ALLERGIC TO IV DYE? NO . ANY NEW ALLERGIES? NO . PSYCHIATRIC: DO YOU HAVE THOUGHTS OF HURTING YOURSELF OR SOMEONE ELSE? NO . ARE YOU ABUSED, NEGLECTED, OR IN AN UNSAFE ENVIRONMENT? NO . ENDOCRINOLOGY: ARE YOU DIABETIC? NO . OTHER: DO YOU NEED ANY PRESCRIPTIONS? NO . IF YES, PLEASE LIST: ____ . ANY NEW PROBLEMS WITH YOUR MEDICATIONS? NO . WHEN DID YOU LAST EAT? ____ . WHEN DID YOU LAST DRINK? ____ . WHAT DID YOU LAST DRINK? ____ . NAME OF PERSON DRIVING YOU HOME? ____ . DO YOU HAVE ANY OTHER QUESTIONS OR CONCERNS NO . VITAL SIGNS WT 178.0 LBS, HT 68.5 IN, BMI 26.67 INDEX, BP 127/68 MM HG, HR 74 /MIN, RR 16 /MIN, TEMP 96.0 F, OXYGEN SAT % 100%, NA INITIALS AW 1159. EXAMINATION GENERAL EXAMINATION: GENERAL AWAKE,ALERT ,PLEASANT . PSYCH AFFECT NORMAL . LUNGS: LUNG MAYEN ARE CLEAR TO AUSCULTATION BILATERALLY. GOOD MOVEMENT OF AIR . HEART: S1, S2 IN A REGULAR RATE AND RHYTHM. NO SIGNIFICANT MURMURS, RUBS OR GALLOPS NOTED . CERVICAL TRIGGER POINTS: CERVICAL AND TRAPEZIUS BILAT..PAIN IS AGGREVATED WITH ROJM NECK. DIAGNOSTIC TESTS REVIEWEDMRI OF THE CERVICAL SPINE 09/30/2019 THORACIC X-RAY 09/09/2019. ASSESSMENTS MYALGIA OF AUXILIARY MUSCLES, HEAD AND NECK - M79.12 (PRIMARY) TREATMENT MYALGIA OF AUXILIARY MUSCLES, HEAD AND NECK NOTES: TRIGGER POINT INJECTION. UPPER THORACIC BILATERALLYDISCUSSED TREATMENT GUIDELINE FOR MYOFASCIAL PAIN SYNDROME. PATIENT IS AGREEABLE TO START MASSAGE THERAPY TO ACCOMPANY TRIGGER POINT INJECTIONS. PREVENTIVE MEDICINE PAIN CLINIC TEACHING: PROCEDURE TEACHING PRINTED AND REVIEWED INFORMATION ON TRIGER POINT INJECTION PROCEDURE WITH PATIENT. ALSO REVIEWED PRE-PROCEDURE INSTRUCTIONS. PATIENT VERBALIZED AN UNDERSTANDING. CECILIO LYNN 10/06/2019 3:15:26 PM > . PROCEDURE CODES FA211 ESTABILISHED PATIENT [facility] CHARGE DISPOSITION & COMMUNICATION FOLLOW UP POST (REASON: TRIGGER POINT INJECTION. UPPER THORACIC BILATERALLY) ELECTRONICALLY SIGNED BY IVETH CHOW ON 10/18/2019 AT 03:15 PM EST DISCLAIMER : THIS IS A VISIT SUMMARY EXTRACTED FROM THE ECLINICALWORKS CHART. IT IS NOT A COPY OF THE ECLINICALWORKS PROGRESS NOTE. OWEN
== END ==
LOC: M PAIN 11:15
PROVIDERS: ATTEND Nurse Practitioner Family
DX: M79.12 Myalgia of auxiliary muscles, head and neck (principal); Z87.891 Personal history of nicotine dependence; Z79.899 Other long term (current) drug therapy

== ENCOUNTER → 2019-10-11 | Outpatient (REF) | payer OTHER ==
[2019-10-11 14:13] LABS: FREE T4 0.91 NG/DL (0.76-1.46); THYROID STIMULATING HORMONE 0.06 uIU/ML (0.358-3.740)
[2019-10-12 14:10] LABS: THRYOGLOBULIN ANTIBODIES (ATA) < 1.0 IU/mL (0.0-0.9); THYROGLOBULIN QUANTITATIVE < 0.1 ng/mL (1.5-38.5)
== END ==
LOC: M LABDRWAD 12:26
PROVIDERS: ATTEND Internal Medicine Endocrinology, Diabetes & Metabolism
DX: C73 Malignant neoplasm of thyroid gland (principal); E89.0 Postprocedural hypothyroidism

== ENCOUNTER → 2019-11-03 | Outpatient (CLI) | payer OTHER ==
[~2019-11-03] MED LIST: BUPIVACAINE HCL 0.25% 30 ML VIAL As Ordered ONE; ONDANSETRON 4 MG ORAL DISINTEGRATING TAB (Q0162 PER 1MG) As Ordered ONE; TRIAMCINOLONE ACETONIDE SUSP 40 MG/ML VIAL (J3301) As Ordered ONE; diazePAM 5 MG TAB As Ordered ONE
--- NOTE | 2019-11-11 03:52 | ECWPNPC ---
PATIENT NAME: ULISES TEJADA : 1980 GENDER: FEMALE VISIT DATE: 11/03/2019 DISCHARGE DATE: 11/03/19 1002 VISIT LOCKED DATE TIME: PHYSICIAN: MATTHEW NEWTON MD RESOURCE: MATTHEW NEWTON MD REASON FOR APPOINTMENT 1. TPI UPPER THORACIC BILATERALLY HISTORY OF PRESENT ILLNESS HISTORY OF PRESENT ILLNESS: PAIN THE PATIENT DESCRIBES THE PAIN... FALL RISK SCREENING: SCREENING :NO FALLS REPORTED IN THE LAST YEAR CURRENT MEDICATIONS TAKING VITAMIN D-3 1000 UNIT CAPSULE 3 CAPSULE ORALLY ONCE A DAY, NOTES: 11/02 1199 TAKING ARMOUR THYROID 90 MG TABLET 1 TABLET ON AN EMPTY STOMACH ORALLY ONCE A DAY, NOTES: 11/03 0600 TAKING CYCLOBENZAPRINE HCL 5 MG TABLET 1 TABLET NEEDED ORALLY THREE TIMES A DAY NEEDED FRO NECK PAIN, NOTES: 1 WEEK AGO TAKING CALCIUM 1200 _ TABLET CHEWABLE 1500 UNITS 1 TABLET WITH A MEAL ORALLY ONCE A DAY, NOTES: 11/02 1200 NOT-TAKING VALIUM 5 MG TABLET 1 TAB ORALLY 1/2 HR PRE MRI MDD1 NOT-TAKING VALIUM 5 MG TABLET 1 TAB ORALLY 1/2 HR PRE MRI MDD1 NOT-TAKING VALIUM 5 MG TABLET 1 TAB ORALLY 1 TAB 1/2 HR PRE MRI MEDICATION LIST REVIEWED AND RECONCILED WITH THE PATIENT PAST MEDICAL HISTORY HEADACHES (IMPROVED SINCE STOPPING ORTHO EVRA PATCH) MULTINODULAR THYROID/GOITER , THYROID ULTRASOUND 12/09/11 MULTINODULAR THYROID/ BIOPSY 07/09(DR RAZA) SUGGESTED BACKGROUND LYMPHOCYTIC THYROIDITIS. RECOMMENDED REPEAT ULTRASOUND AND BIOPSY ONE YEAR (07/10). [facility] SECOND OPINION - UNDERWENT THYROIDECTOMY FAMILY H/O MELANOMA - MOTHER/AUNT HYPOTHYROIDISM DUE TO THYROIDECTOMY ALLERGIES SUMAC: ANAPHYLAXIS - ALLERGY SURGICAL HISTORY 05/2008, 01/2012 ALL FOUR WISDOM TEETH EXTRACTED 1998 THYROID BX-NEGATIVE 07/09 ABLASION-UTERUS 2015 THYROIDECTOMY FAMILY HISTORY FATHER: ALIVE, SQUAMOUS CELL CARCINOMA MOUTH, THYROID CANCER, PROSTATE CANCER MOTHER: ALIVE, HYPOTHYROIDISM, MELANOMA ON FACE MATERNAL AUNT: BREAST CANCER MELANOMA 2 BROTHER(S) - HEALTHY. 1 SON(S) , 1 DAUGHTER(S) - HEALTHY. FAMILY HISTORY OF MM. SOCIAL HISTORY GENERAL: TOBACCO USE ARE YOU A:FORMER SMOKER FORMER SMOKER HOW LONG HAS IT BEEN SINCE YOU LAST SMOKED?> 10 YEARS DIET: REGULAR. LANGUAGE KYRGYZ. DOMESTIC VIOLENCE NONE. RECREATIONAL DRUG USE DENIES. EXERCISE: NONE. LEARNING BARRIERS / SPECIAL NEEDS CHANGE FROM LAST VISIT?NO BARRIERS TO LEARNING?NO HEARING IMPAIRED?NO VISION IMPAIRED?NO COGNITIVELY IMPAIRED?NO READINESS TO LEARN?YES LEARNING PREFERENCES?NO LEARNING CAPABILITIES PRESENT?YES EMOTIONAL BARRIERS?NO SPECIAL DEVICES?NO CREDIT ANALYST NEEDED?NO PAIN CLINIC PFS, CLERGY, PUBLIC HEALTH REFERRALS HAS THE PATIENT BEEN EDUCATED REGARDING HIS/HER PLAN OF CARE?YES HAS THE PATIENT BEEN EDUCATED REGARDING PAIN, THE RISK FOR PAIN, THE IMPORTANCE OF EFFECTIVE PAIN MANAGEMENT, AND THE PAIN ASSESSMENT PROCESS?YES LATEX QUESTIONNAIRE LATEX ALLERGY : HAVE YOU EVER DEVELOPED ANY TYPE OF REACTION AFTER HANDLING LATEX PRODUCTS SUCH RUBBER GLOVES, CONDOMS, DIAPHRAGMS, BALLOONS, SOCKS, OR UNDERWEAR?NO LATEX ALLERGY : HAVE YOU EVER DEVELOPED ANY TYPE OF REACTION DURING OR AFTER DENTAL APPOINTMENT, VAGINAL/RECTAL EXAMINATION, SURGICAL PROCEDURE, OR ANY OTHER EXPOSURE?NO LATEX RISK : HAVE YOU EVER HAD ANY DIFFICULTY BREATHING OR HIVES AFTER EATING OR HANDLING ANY FRUITS, OR VEGETABLES; SUCH KIWI, BANANAS, STONE FRUITS, OR CHESTNUTSNO LATEX RISK : DO YOU HAVE A PREVIOUS PERSONAL HISTORY OF MORE THAN NINE SURGERIES, SPINA BIFIDA, OR REPEATED CATHERIZATIONS? NO LATEX RISK : ARE YOU FREQUENTLY EXPOSED TO LATEX PRODUCTS IN YOUR OCCUPATION?NO DATE ASKED : 11/03/2019 CAFFEINE NONE. ADVANCE DIRECTIVE ADVANCE DIRECTIVE DISCUSSED WITH PATIENT:YES 11/03/2019 PT DOES NOT HAVE ANY ADVANCED DIRECTIVES AND SHE DECLINES INFORMATION ON HCP AT THIS TIME. AD LATTER-DAY NO RESTORATION BELIEFS THAT WOULD IMPACT HEALTH CARE. ALCOHOL SCREENING DID YOU HAVE A DRINK CONTAINING ALCOHOL IN THE PAST YEAR?NO POINTS0 INTERPRETATIONNEGATIVE OCCUPATION: FT STUDENT, [employer]. SEXUAL HX HAD SEX IN THE LAST 12 MONTHS (VAGINAL, ORAL, OR ANAL)?YES WITHMEN ONLY USE PROTECTION?NO LMP:2015 HAVE YOU EVER HAD AN STD?NO PREADMISSION SCREENING COMPLETED. 08/31/19 DSREVIEWED WITH PT. 09/15/19 1330 BVREVIEWED WITH PATIENT 10/06/2019 1154 JS. HOSPITALIZATION/MAJOR DIAGNOSTIC PROCEDURE CHILDBIRTH SURGERY REVIEW OF SYSTEMS REVIEWED BY: PROVIDER: . CONSTITUTIONAL: ANY CHANGE IN YOUR MEDICAL CONDITION? NO . CHILLS NO . FEVER NO . INFECTION: DO YOU HAVE NEW INFECTIONS? NO . DO YOU HAVE HISTORY OF MRSA? NO . MUSCULOSKELETAL: ANY NEW PATTERNS OF PAIN OR NUMBNESS? NO . GASTROENTEROLOGY: ANY NEW CHANGE IN BOWEL CONTROL? NO . GENITOURINARY: ANY NEW CHANGE IN BLADDER CONTROL? NO . IS THERE A CHANCE YOU COULD BE ? NO . HEMATOLOGY/LYMPH: DO YOU TAKE ANY BLOOD THINNERS? (FOR EXAMPLE- COUMADIN, PLAVIX, AGGRENOX, PLATEL, PRADAXA, OR XARELTO) NO . WHEN WAS YOUR LAST DOSE? DATE: TIME: . NEUROLOGY: HAVE YOU FALLEN IN THE PAST 12 MONTHS? NO . ANY NEW EXTREMITY NUMBNESS OR WEAKNESS? NO . CARDIOLOGY: DO YOU HAVE A PACEMAKER OR DEFIBRILLATOR? NO . RESPIRATORY: HAVE YOU BEEN SICK IN THE PAST WEEK? NO . FEVER NO . FLU LIKE SYMPTOMS? NO . COUGH NO . INTEGUMENTARY: DO YOU HAVE ANY RASHES OR OPEN SORES? NO . ALLERGIC/IMMUNO: ARE YOU ALLERGIC TO IV DYE? NO . ANY NEW ALLERGIES? NO . PSYCHIATRIC: DO YOU HAVE THOUGHTS OF HURTING YOURSELF OR SOMEONE ELSE? NO . ARE YOU ABUSED, NEGLECTED, OR IN AN UNSAFE ENVIRONMENT? NO . ENDOCRINOLOGY: ARE YOU DIABETIC? NO . OTHER: DO YOU NEED ANY PRESCRIPTIONS? NO . IF YES, PLEASE LIST: ____ . ANY NEW PROBLEMS WITH YOUR MEDICATIONS? NO . WHEN DID YOU LAST EAT? 11/020 . WHEN DID YOU LAST DRINK? 11/02 1699 . WHAT DID YOU LAST DRINK? TEA . NAME OF PERSON DRIVING YOU HOME? IRMA TEJADA . DO YOU HAVE ANY OTHER QUESTIONS OR CONCERNS NO PT HAS NOT HAD ANY VACCINES IN THE PAST 30 DAYS . VITAL SIGNS WT 176.4 LBS, HT 68.5 IN, BMI 26.43 INDEX, BP 115/63 MM HG, HR 67 /MIN, RR 16 /MIN, TEMP 97.1 F, OXYGEN SAT % 99%, SAFE IN ENV? (Y/N) Y, NA INITIALS AW 0846, REVIEWED BY: AD. ASSESSMENTS MYALGIA, OTHER SITE - M79.18 (PRIMARY) PROCEDURES PN TRIGGER POINT INJECTION WITH STEROIDS PRE PROCEDURE DIAGNOSIS 1. MYALGIA 2. PAIN AT BILATERAL THORACIC AREA. POST PROCEDURE DIAGNOSIS 1. MYALGIA 2. PAIN AT BILATERAL THORACIC AREA. PROCEDURE TRIGGER POINT INJECTION AT RIGHT AND LEFT THORACIC AREA. SURGEON DR. MATTHEW NEWTON AIR DEFENSE SPECIALIST NONE ANESTHESIA LOCAL PRE PROCEDURE NOTE THE PATIENT HAS A HISTORY OF CHRONIC PAIN AT THE RIGHT AND LEFT THORACIC AREA. I EVALUATED THE PATIENT AND REVIEWED THE CHART. THERE IS EVIDENCE OF BANDS OF TISSUE WITH RESTRICTION OF MOVEMENT AND PRESENCE OF TRIGGER POINT AT THE AFFECTED AREA. I WENT OVER THE RISKS, ALTERNATIVES, AND BENEFITS ASSOCIATED WITH THIS PROCEDURE. THE PATIENT WOULD LIKE TO PROCEED AND GIVES CONSENT TO PERFORM THE PROCEDURE. THE PATIENT DENIES UNEXPLAINABLE WEIGHT LOSS, FEVER, CHILLS, OR NEW CHANGES IN URINARY OR BOWEL CONTROL DESCRIPTION OF PROCEDURE THE PATIENT WAS BROUGHT TO THE PROCEDURE ROOM AND PLACED IN THE SITTING POSITION. THE AREA WAS CLEANED WITH ALCOHOL. THE PROCEDURE WAS DONE USING ASEPTIC STERILE TECHNIQUE. I CHECKED LATERALITY AND THE LEVEL WHERE THE PROCEDURE WAS GOING TO BE PERFORMED WITH THE PATIENT AND THE SUPPORTING STAFF AT THE MOMENT OF THE TIME OUT IN THE PROCEDURE ROOM. USING A 25-GAUGE NEEDLE, TRIGGER POINTS WERE INJECTED AT THE RIGHT AND LEFT THORACIC AREA WITH A TOTAL OF 40 ML OF BUPIVACAINE 0.25% AND KENALOG 40 MG. THERE WAS NO EVIDENCE OF BLOOD, PARESTHESIA OR CEREBROSPINAL FLUID DURING THE PROCEDURE. THE PATIENT WAS SENT TO THE RECOVERY ROOM. THE PATIENT WAS MOVING THE EXTREMITIES AND DOING WELL. THERE WAS NO COMPLICATION DURING THE PROCEDURE POST PROCEDURE NOTE THE PATIENT WILL BE SEEN IN A FOLLOW UP IN THE NEXT FEW WEEKS. I AM LOOKING FOR LONG LASTING PAIN RELIEF WITH THIS INJECTION. INSTRUCTIONS WERE GIVEN, QUESTIONS WERE ANSWERED, AND THE PATIENT EXPRESSED UNDERSTANDING AND AGREES WITH THE PLAN. I, DASH LARA, DOCUMENTED THE ABOVE INFORMATION ACTING A SCRIBE FOR DR. NEWTON. I HAVE REVIEWED THE ABOVE DOCUMENT, WRITTEN BY DASH CARTER AND I VERIFY THAT IT IS ACCURATE. PROCEDURE CODES 25422 INJ TRIGGER POINT / [facility] [place] DISPOSITION & COMMUNICATION FOLLOW UP 3 WEEKS ELECTRONICALLY SIGNED BY MATTHEW NEWTON MD, MD ON 11/10/2019 AT 01:49 PM EST DISCLAIMER : THIS IS A VISIT SUMMARY EXTRACTED FROM THE [employer] CHART. IT IS NOT A COPY OF THE Order Mapper PROGRESS NOTE. MTDD
== END ==
LOC: M PAIN 08:30
PROVIDERS: ATTEND Anesthesiology
DX: M79.18 Myalgia, other site (principal); E03.9 Hypothyroidism, unspecified; Z87.891 Personal history of nicotine dependence; Z91.09 Other allergy status, other than to drugs and biological substances; Z79.899 Other long term (current) drug therapy
CPT/HCPCS: 20552; J3301; Q0162

== ENCOUNTER → 2019-11-17 | Outpatient (CLI) | payer OTHER ==
--- NOTE | 2019-12-06 02:48 | ECWPNPC ---
PATIENT NAME: ULISES TEJADA : 1980 GENDER: FEMALE VISIT DATE: 11/17/2019 DISCHARGE DATE: 11/17/19939 VISIT LOCKED DATE TIME: PHYSICIAN: BRANDON TORRE RESOURCE: BRANDON TORRE REASON FOR APPOINTMENT 1. POST TPI HISTORY OF PRESENT ILLNESS HISTORY OF PRESENT ILLNESS: HERE FOR POST PROCEDURE FOLLOW-UP. HAD TRIGGER POINT INJECTIONS TO THE UPPER BACK ON 11/03/2019. REPORTING MARKED REDUCTION IN TENSION TYPE PAIN AND IMPROVED SLEEP POST PROCEDURE FOR 2 WEEKS AND THEN PAIN HAS BEGUN TO RETURN. LAST NIGHT SHE HAD TO TAKE IBUPROFEN. SHE HAS NOT STARTED MASSAGE THERAPY. RATING PAIN LEVEL A 5-9/10 VAS. DISCUSSED TREATMENT PLAN. PAIN THE PATIENT DESCRIBES THE PAIN... FALL RISK SCREENING: SCREENING :NO FALLS REPORTED IN THE LAST YEAR CURRENT MEDICATIONS TAKING VITAMIN D-3 1000 UNIT CAPSULE 3 CAPSULE ORALLY ONCE A DAY, NOTES: 11/02 1199 TAKING ARMOUR THYROID 90 MG TABLET 1 TABLET ON AN EMPTY STOMACH ORALLY ONCE A DAY, NOTES: 11/03 0600 TAKING CYCLOBENZAPRINE HCL 5 MG TABLET 1 TABLET NEEDED ORALLY THREE TIMES A DAY NEEDED FRO NECK PAIN, NOTES: 1 WEEK AGO TAKING CALCIUM 1200 _ TABLET CHEWABLE 1500 UNITS 1 TABLET WITH A MEAL ORALLY ONCE A DAY, NOTES: 11/02 1199 NOT-TAKING VALIUM 5 MG TABLET 1 TAB ORALLY 1/2 HR PRE MRI MDD1 NOT-TAKING VALIUM 5 MG TABLET 1 TAB ORALLY 1/2 HR PRE MRI MDD1 NOT-TAKING VALIUM 5 MG TABLET 1 TAB ORALLY 1 TAB 1/2 HR PRE MRI MEDICATION LIST REVIEWED AND RECONCILED WITH THE PATIENT PAST MEDICAL HISTORY HEADACHES (IMPROVED SINCE STOPPING ORTHO EVRA PATCH) MULTINODULAR THYROID/GOITER , THYROID ULTRASOUND 12/09/11 MULTINODULAR THYROID/ BIOPSY 07/09(DR RAZA) SUGGESTED BACKGROUND LYMPHOCYTIC THYROIDITIS. RECOMMENDED REPEAT ULTRASOUND AND BIOPSY ONE YEAR (07/10). [facility] SECOND OPINION - UNDERWENT THYROIDECTOMY FAMILY H/O MELANOMA - MOTHER/AUNT HYPOTHYROIDISM DUE TO THYROIDECTOMY ALLERGIES SUMAC: ANAPHYLAXIS - ALLERGY TEGADERM: RASH - ALLERGY SURGICAL HISTORY 05/2008, 01/2012 ALL FOUR WISDOM TEETH EXTRACTED 1998 THYROID BX-NEGATIVE 07/09 ABLASION-UTERUS 2014 THYROIDECTOMY FAMILY HISTORY FATHER: ALIVE, SQUAMOUS CELL CARCINOMA MOUTH, THYROID CANCER, PROSTATE CANCER MOTHER: ALIVE, HYPOTHYROIDISM, MELANOMA ON FACE MATERNAL AUNT: BREAST CANCER MELANOMA 2 BROTHER(S) - HEALTHY. 1 SON(S) , 1 DAUGHTER(S) - HEALTHY. FAMILY HISTORY OF MM. SOCIAL HISTORY GENERAL: TOBACCO USE ARE YOU A:FORMER SMOKER FORMER SMOKER HOW LONG HAS IT BEEN SINCE YOU LAST SMOKED?> 10 YEARS DIET: REGULAR. LANGUAGE SAO TOMEAN. DOMESTIC VIOLENCE NONE. RECREATIONAL DRUG USE DENIES. EXERCISE: NONE. LEARNING BARRIERS / SPECIAL NEEDS CHANGE FROM LAST VISIT?NO BARRIERS TO LEARNING?NO HEARING IMPAIRED?NO VISION IMPAIRED?NO COGNITIVELY IMPAIRED?NO READINESS TO LEARN?YES LEARNING PREFERENCES?NO LEARNING CAPABILITIES PRESENT?YES EMOTIONAL BARRIERS?NO SPECIAL DEVICES?NO GROUND CREW LINESMAN NEEDED?NO PAIN CLINIC PFS, CLERGY, PUBLIC HEALTH REFERRALS HAS THE PATIENT BEEN EDUCATED REGARDING HIS/HER PLAN OF CARE?YES HAS THE PATIENT BEEN EDUCATED REGARDING PAIN, THE RISK FOR PAIN, THE IMPORTANCE OF EFFECTIVE PAIN MANAGEMENT, AND THE PAIN ASSESSMENT PROCESS?YES LATEX QUESTIONNAIRE LATEX ALLERGY : HAVE YOU EVER DEVELOPED ANY TYPE OF REACTION AFTER HANDLING LATEX PRODUCTS SUCH RUBBER GLOVES, CONDOMS, DIAPHRAGMS, BALLOONS, SOCKS, OR UNDERWEAR?NO LATEX ALLERGY : HAVE YOU EVER DEVELOPED ANY TYPE OF REACTION DURING OR AFTER DENTAL APPOINTMENT, VAGINAL/RECTAL EXAMINATION, SURGICAL PROCEDURE, OR ANY OTHER EXPOSURE?NO DATE ASKED : 11/03/2019 LATEX RISK : HAVE YOU EVER HAD ANY DIFFICULTY BREATHING OR HIVES AFTER EATING OR HANDLING ANY FRUITS, OR VEGETABLES; SUCH KIWI, BANANAS, STONE FRUITS, OR CHESTNUTSNO LATEX RISK : DO YOU HAVE A PREVIOUS PERSONAL HISTORY OF MORE THAN NINE SURGERIES, SPINA BIFIDA, OR REPEATED CATHERIZATIONS? NO LATEX RISK : ARE YOU FREQUENTLY EXPOSED TO LATEX PRODUCTS IN YOUR OCCUPATION?NO CAFFEINE NONE. ADVANCE DIRECTIVE ADVANCE DIRECTIVE DISCUSSED WITH PATIENT:YES 11/03/2019 PT DOES NOT HAVE ANY ADVANCED DIRECTIVES AND SHE DECLINES INFORMATION ON HCP AT THIS TIME. AD CAODAISM NO ORIENTAL ORTHODOX BELIEFS THAT WOULD IMPACT HEALTH CARE. ALCOHOL SCREENING DID YOU HAVE A DRINK CONTAINING ALCOHOL IN THE PAST YEAR?NO POINTS0 INTERPRETATIONNEGATIVE OCCUPATION: FT STUDENT, [employer]. SEXUAL HX HAD SEX IN THE LAST 12 MONTHS (VAGINAL, ORAL, OR ANAL)?YES WITHMEN ONLY USE PROTECTION?NO LMP:2014 HAVE YOU EVER HAD AN STD?NO PREADMISSION SCREENING COMPLETED. 08/31/19 DSREVIEWED WITH PT. 09/15/19 1330 BVREVIEWED WITH PATIENT 10/06/2019 1154 JS. HOSPITALIZATION/MAJOR DIAGNOSTIC PROCEDURE CHILDBIRTH SURGERY REVIEW OF SYSTEMS REVIEWED BY: PROVIDER: BRANDON LAZARO . CONSTITUTIONAL: ANY CHANGE IN YOUR MEDICAL CONDITION? NO . CHILLS NO . FEVER NO . INFECTION: DO YOU HAVE NEW INFECTIONS? NO . DO YOU HAVE HISTORY OF MRSA? NO . MUSCULOSKELETAL: ANY NEW PATTERNS OF PAIN OR NUMBNESS? NO . GASTROENTEROLOGY: ANY NEW CHANGE IN BOWEL CONTROL? NO . GENITOURINARY: ANY NEW CHANGE IN BLADDER CONTROL? NO . IS THERE A CHANCE YOU COULD BE ? NO . HEMATOLOGY/LYMPH: DO YOU TAKE ANY BLOOD THINNERS? (FOR EXAMPLE- COUMADIN, PLAVIX, AGGRENOX, PLATEL, PRADAXA, OR XARELTO) NO . WHEN WAS YOUR LAST DOSE? DATE: TIME: . NEUROLOGY: HAVE YOU FALLEN IN THE PAST 12 MONTHS? NO . ANY NEW EXTREMITY NUMBNESS OR WEAKNESS? NO . CARDIOLOGY: DO YOU HAVE A PACEMAKER OR DEFIBRILLATOR? NO . RESPIRATORY: HAVE YOU BEEN SICK IN THE PAST WEEK? NO . FEVER NO . FLU LIKE SYMPTOMS? NO . COUGH NO . INTEGUMENTARY: DO YOU HAVE ANY RASHES OR OPEN SORES? NO . ALLERGIC/IMMUNO: ARE YOU ALLERGIC TO IV DYE? NO . ANY NEW ALLERGIES? NO . PSYCHIATRIC: DO YOU HAVE THOUGHTS OF HURTING YOURSELF OR SOMEONE ELSE? NO . ARE YOU ABUSED, NEGLECTED, OR IN AN UNSAFE ENVIRONMENT? NO . ENDOCRINOLOGY: ARE YOU DIABETIC? NO . OTHER: DO YOU NEED ANY PRESCRIPTIONS? NO . IF YES, PLEASE LIST: ____ . ANY NEW PROBLEMS WITH YOUR MEDICATIONS? NO . WHEN DID YOU LAST EAT? ____ . WHEN DID YOU LAST DRINK? ____ . WHAT DID YOU LAST DRINK? ____ . NAME OF PERSON DRIVING YOU HOME? ____ . DO YOU HAVE ANY OTHER QUESTIONS OR CONCERNS NO . VITAL SIGNS WT 172.0 LBS, HT 68.5 IN, BMI 25.77 INDEX, BP 116/68 MM HG, HR 68 /MIN, RR 16 /MIN, TEMP 97.0 F, OXYGEN SAT % 99%, SAFE IN ENV? (Y/N) YES, NA INITIALS AW [id number], REVIEWED BY: ALISA. EXAMINATION GENERAL EXAMINATION: GENERAL AWAKE,ALERT ,PLEASANT , AWAKE,ALERT ,PLEASANT . PSYCH AFFECT NORMAL , AFFECT NORMAL . LUNGS: LUNG MAYEN ARE CLEAR TO AUSCULTATION BILATERALLY. GOOD MOVEMENT OF AIR , LUNG MAYEN ARE CLEAR TO AUSCULTATION BILATERALLY. GOOD MOVEMENT OF AIR . HEART: S1, S2 IN A REGULAR RATE AND RHYTHM. NO SIGNIFICANT MURMURS, RUBS OR GALLOPS NOTED , S1, S2 IN A REGULAR RATE AND RHYTHM. NO SIGNIFICANT MURMURS, RUBS OR GALLOPS NOTED . THORACIC SPINE: TRIGGER POINTS:, ELICITED WITH PALPATION OVER UPPER THORACIC PARASPINAL MUSCLES. CERVICAL: TRIGGER POINTS: CERVICAL AND TRAPEZIUS BILAT..PAIN IS AGGREVATED WITH ROJM NECK. DIAGNOSTIC TESTS REVIEWEDMRI OF THE CERVICAL SPINE 09/2018 MRI THORACIC SPINE-09/2019. ASSESSMENTS MYALGIA, OTHER SITE - M79.18 (PRIMARY) TREATMENT MYALGIA, OTHER SITE NOTES: TPI BILAT UPPER THORACIC/LOW CERVICAL. PREVENTIVE MEDICINE PAIN CLINIC TEACHING: PROCEDURE TEACHING REVIEWED TRIGGER POINT PROCEDURE, PRE PROCEDURE INSTRUCTIONS REVIEWED WITH PATIENT, PATIENT VERBALIZES UNDERSTANDING. 11/17/2019 LAS. PROCEDURE CODES [id number] ESTABILISHED PATIENT [facility] CHARGE DISPOSITION & COMMUNICATION FOLLOW UP POST (REASON: TPI BILAT UPPER THORACIC/LOW CERVICAL) ELECTRONICALLY SIGNED BY IVETH CHOW ON 12/05/2019 AT 02:43 PM EDT DISCLAIMER : THIS IS A VISIT SUMMARY EXTRACTED FROM THE [employer] CHART. IT IS NOT A COPY OF THE [employer] PROGRESS NOTE. OWEN
== END ==
LOC: M PAIN 08:45
PROVIDERS: ATTEND Nurse Practitioner Family
DX: M79.18 Myalgia, other site (principal); E89.0 Postprocedural hypothyroidism; Z87.891 Personal history of nicotine dependence; Z79.899 Other long term (current) drug therapy; Z88.8 Allergy status to other drugs, medicaments and biological substances; Z91.048 Other nonmedicinal substance allergy status

== ENCOUNTER → 2019-12-08 | Outpatient (REF) | payer OTHER ==
[2019-12-08 14:02] LABS: FREE T4 0.88 NG/DL (0.76-1.46); THYROID STIMULATING HORMONE 0.563 uIU/ML (0.358-3.740)
== END ==
LOC: M LABDRWAD 12:38
PROVIDERS: ATTEND Internal Medicine
DX: E89.0 Postprocedural hypothyroidism (principal)

== ENCOUNTER → 2019-12-12 | Outpatient (CLI) | payer OTHER ==
[~2019-12-12] MED LIST changes: -ONDANSETRON 4 MG ORAL DISINTEGRATING TAB (Q0162 PER 1MG) As Ordered ONE
--- NOTE | 2019-12-23 03:02 | ECWPNPC ---
PATIENT NAME: ULISES TEJADA : 1980 GENDER: FEMALE VISIT DATE: 12/12/2019 DISCHARGE DATE: 12/12/19 1057 VISIT LOCKED DATE TIME: PHYSICIAN: MATTHEW NEWTON MD RESOURCE: MATTHEW NEWTON MD REASON FOR APPOINTMENT 1. TPI BILAT UPPER THORACIC/LOW CERVICAL HISTORY OF PRESENT ILLNESS HISTORY OF PRESENT ILLNESS: PAIN THE PATIENT DESCRIBES THE PAIN... FALL RISK SCREENING: SCREENING :NO FALLS REPORTED IN THE LAST YEAR CURRENT MEDICATIONS TAKING VITAMIN D-3 1000 UNIT CAPSULE 3 CAPSULE ORALLY ONCE A DAY, NOTES: 12/11/2019 1200 TAKING ARMOUR THYROID 90 MG TABLET 1 TABLET ON AN EMPTY STOMACH ORALLY ONCE A DAY, NOTES: 12/12/2019 0700 TAKING CYCLOBENZAPRINE HCL 5 MG TABLET 1 TABLET NEEDED ORALLY THREE TIMES A DAY NEEDED FRO NECK PAIN, NOTES: OVER A MONTH AGO TAKING CALCIUM 1200 _ TABLET CHEWABLE 1500 UNITS 1 TABLET WITH A MEAL ORALLY ONCE A DAY, NOTES: 12/11/2019 1200 TAKING MUCINEX 600 MG TABLET EXTENDED RELEASE 12 HOUR 1 TABLET NEEDED ORALLY EVERY 12 HRS, NOTES: 12/11/2019 AM NOT-TAKING VALIUM 5 MG TABLET 1 TAB ORALLY 1/2 HR PRE MRI MDD1 NOT-TAKING VALIUM 5 MG TABLET 1 TAB ORALLY 1/2 HR PRE MRI MDD1 NOT-TAKING VALIUM 5 MG TABLET 1 TAB ORALLY 1 TAB 1/2 HR PRE MRI MEDICATION LIST REVIEWED AND RECONCILED WITH THE PATIENT PAST MEDICAL HISTORY HEADACHES (IMPROVED SINCE STOPPING ORTHO EVRA PATCH) MULTINODULAR THYROID/GOITER , THYROID ULTRASOUND 12/09/11 MULTINODULAR THYROID/ BIOPSY 07/09(DR RAZA) SUGGESTED BACKGROUND LYMPHOCYTIC THYROIDITIS. RECOMMENDED REPEAT ULTRASOUND AND BIOPSY ONE YEAR (07/10). [facility] SECOND OPINION - UNDERWENT THYROIDECTOMY FAMILY H/O MELANOMA - MOTHER/AUNT HYPOTHYROIDISM DUE TO THYROIDECTOMY ALLERGIES SUMAC: ANAPHYLAXIS - ALLERGY TEGADERM: RASH - ALLERGY SURGICAL HISTORY 05/2008, 01/2012 ALL FOUR WISDOM TEETH EXTRACTED 1998 THYROID BX-NEGATIVE 07/09 ABLASION-UTERUS 2015 THYROIDECTOMY FAMILY HISTORY FATHER: ALIVE, SQUAMOUS CELL CARCINOMA MOUTH, THYROID CANCER, PROSTATE CANCER MOTHER: ALIVE, HYPOTHYROIDISM, MELANOMA ON FACE MATERNAL AUNT: BREAST CANCER MELANOMA 2 BROTHER(S) - HEALTHY. 1 SON(S) , 1 DAUGHTER(S) - HEALTHY. FAMILY HISTORY OF MMMOTHER HAD MASTECTOMY. SOCIAL HISTORY GENERAL: TOBACCO USE ARE YOU A:FORMER SMOKER FORMER SMOKER HOW LONG HAS IT BEEN SINCE YOU LAST SMOKED?> 10 YEARS DIET: REGULAR. LANGUAGE JAPANESE. DOMESTIC VIOLENCE NONE. RECREATIONAL DRUG USE DENIES. EXERCISE: NONE. LEARNING BARRIERS / SPECIAL NEEDS CHANGE FROM LAST VISIT?NO BARRIERS TO LEARNING?NO HEARING IMPAIRED?NO VISION IMPAIRED?NO COGNITIVELY IMPAIRED?NO READINESS TO LEARN?YES LEARNING PREFERENCES?NO LEARNING CAPABILITIES PRESENT?YES EMOTIONAL BARRIERS?NO SPECIAL DEVICES?NO CREDIT REPORTING CLERK NEEDED?NO PAIN CLINIC PFS, CLERGY, PUBLIC HEALTH REFERRALS HAS THE PATIENT BEEN EDUCATED REGARDING HIS/HER PLAN OF CARE?YES HAS THE PATIENT BEEN EDUCATED REGARDING PAIN, THE RISK FOR PAIN, THE IMPORTANCE OF EFFECTIVE PAIN MANAGEMENT, AND THE PAIN ASSESSMENT PROCESS?YES LATEX QUESTIONNAIRE LATEX ALLERGY : HAVE YOU EVER DEVELOPED ANY TYPE OF REACTION AFTER HANDLING LATEX PRODUCTS SUCH RUBBER GLOVES, CONDOMS, DIAPHRAGMS, BALLOONS, SOCKS, OR UNDERWEAR?NO LATEX ALLERGY : HAVE YOU EVER DEVELOPED ANY TYPE OF REACTION DURING OR AFTER DENTAL APPOINTMENT, VAGINAL/RECTAL EXAMINATION, SURGICAL PROCEDURE, OR ANY OTHER EXPOSURE?NO DATE ASKED : 11/03/2019 LATEX RISK : HAVE YOU EVER HAD ANY DIFFICULTY BREATHING OR HIVES AFTER EATING OR HANDLING ANY FRUITS, OR VEGETABLES; SUCH KIWI, BANANAS, STONE FRUITS, OR CHESTNUTSNO LATEX RISK : DO YOU HAVE A PREVIOUS PERSONAL HISTORY OF MORE THAN NINE SURGERIES, SPINA BIFIDA, OR REPEATED CATHERIZATIONS? NO LATEX RISK : ARE YOU FREQUENTLY EXPOSED TO LATEX PRODUCTS IN YOUR OCCUPATION?NO CAFFEINE NONE. ADVANCE DIRECTIVE ADVANCE DIRECTIVE DISCUSSED WITH PATIENT:YES 11/03/2019 PT DOES NOT HAVE ANY ADVANCED DIRECTIVES AND SHE DECLINES INFORMATION ON HCP AT THIS TIME. AD ZOROASTRIANISM NO SABIANIST BELIEFS THAT WOULD IMPACT HEALTH CARE. ALCOHOL SCREENING DID YOU HAVE A DRINK CONTAINING ALCOHOL IN THE PAST YEAR?NO POINTS0 INTERPRETATIONNEGATIVE OCCUPATION: FT STUDENT, [employer] SEXUAL HX HAD SEX IN THE LAST 12 MONTHS (VAGINAL, ORAL, OR ANAL)?YES WITHMEN ONLY USE PROTECTION?NO LMP:2014 HAVE YOU EVER HAD AN STD?NO PREADMISSION SCREENING COMPLETED. 08/31/19 DSREVIEWED WITH PT. 09/15/19 1330 BVREVIEWED WITH PATIENT 10/06/2019 1154 JS. HOSPITALIZATION/MAJOR DIAGNOSTIC PROCEDURE CHILDBIRTH SURGERY REVIEW OF SYSTEMS REVIEWED BY: PROVIDER: . CONSTITUTIONAL: ANY CHANGE IN YOUR MEDICAL CONDITION? NO . CHILLS NO . FEVER NO . INFECTION: DO YOU HAVE NEW INFECTIONS? NO . DO YOU HAVE HISTORY OF MRSA? NO . MUSCULOSKELETAL: ANY NEW PATTERNS OF PAIN OR NUMBNESS? NO . GASTROENTEROLOGY: ANY NEW CHANGE IN BOWEL CONTROL? NO . GENITOURINARY: ANY NEW CHANGE IN BLADDER CONTROL? NO . IS THERE A CHANCE YOU COULD BE ? NO . HEMATOLOGY/LYMPH: DO YOU TAKE ANY BLOOD THINNERS? (FOR EXAMPLE- COUMADIN, PLAVIX, AGGRENOX, PLATEL, PRADAXA, OR XARELTO) NO . WHEN WAS YOUR LAST DOSE? DATE: TIME: . NEUROLOGY: HAVE YOU FALLEN IN THE PAST 12 MONTHS? NO . ANY NEW EXTREMITY NUMBNESS OR WEAKNESS? NO . CARDIOLOGY: DO YOU HAVE A PACEMAKER OR DEFIBRILLATOR? NO . RESPIRATORY: HAVE YOU BEEN SICK IN THE PAST WEEK? YES- CONGESTION ON THURSDAY AND POST NASAL DRIP ON THURSDAY, STATES SHE FEELS NO SYMPTOMS TODAY . FEVER NO . FLU LIKE SYMPTOMS? NO . COUGH NO . INTEGUMENTARY: DO YOU HAVE ANY RASHES OR OPEN SORES? NO . ALLERGIC/IMMUNO: ARE YOU ALLERGIC TO IV DYE? NO . ANY NEW ALLERGIES? YES- DEVELOPED SEVERE REDNESS AFTER REMOVING TEGADERM AFTER LAST TPI- DR NEWTON AWARE . PSYCHIATRIC: DO YOU HAVE THOUGHTS OF HURTING YOURSELF OR SOMEONE ELSE? NO . ARE YOU ABUSED, NEGLECTED, OR IN AN UNSAFE ENVIRONMENT? NO . ENDOCRINOLOGY: ARE YOU DIABETIC? NO . OTHER: DO YOU NEED ANY PRESCRIPTIONS? NO . IF YES, PLEASE LIST: ____ . ANY NEW PROBLEMS WITH YOUR MEDICATIONS? NO . WHEN DID YOU LAST EAT? 12/11/2019 1900 . WHEN DID YOU LAST DRINK? 12/12/2019 . WHAT DID YOU LAST DRINK? WATER . NAME OF PERSON DRIVING YOU HOME? . DO YOU HAVE ANY OTHER QUESTIONS OR CONCERNS NO . VITAL SIGNS WT 168.0 LBS, HT 68.5 IN, BMI 25.17 INDEX, BP 108/79 MM HG, HR 90 /MIN, RR 16 /MIN, TEMP 97.6 F, OXYGEN SAT % 99%, SAFE IN ENV? (Y/N) YES, NA INITIALS AW 0928, REVIEWED BY: ELIZA. ASSESSMENTS NONTRAUMATIC HEMATOMA OF SOFT TISSUE - M79.81 (PRIMARY) PROCEDURES PN TRIGGER POINT INJECTION NO STEROIDS DATE OF PROCEDURE : PRE PROCEDURE DIAGNOSIS 1. MYALGIA 2. PAIN AT BILATERAL NECK AREA AND BILATERAL THORACIC AREA. POST PROCEDURE DIAGNOSIS 1. MYALGIA 2. PAIN AT BILATERAL NECK AREA AND BILATERAL THORACIC AREA. PROCEDURE TRIGGER POINT INJECTION AT RIGHT AND LEFT NECK AREA AND RIGHT AND LEFT THORACIC AREA. SURGEON DR. MATTHEW NEWTON DRUG SAFETY COORDINATOR NONE ANESTHESIA LOCAL PRE PROCEDURE NOTE 39 YEAR-OLD PATIENT WITH HISTORY OF CHRONIC PAIN AT BILATERAL NECK AREA AND BILATERAL THORACIC AREA. I EVALUATED THE PATIENT AND REVIEWED THE CHART. THERE IS EVIDENCE OF BANDS OF TISSUE WITH RESTRICTION OF MOVEMENT AND PRESENCE OF TRIGGER POINT AT THE AFFECTED AREA. I WENT OVER THE RISKS, ALTERNATIVES, AND BENEFITS ASSOCIATED WITH THIS PROCEDURE. THE PATIENT WOULD LIKE TO PROCEED AND GAVE CONSENT TO PERFORM THE PROCEDURE. THE PATIENT DENIES UNEXPLAINABLE WEIGHT LOSS, FEVER, CHILLS, OR NEW CHANGES IN URINARY OR BOWEL CONTROL. DESCRIPTION OF PROCEDURE THE PATIENT WAS BROUGHT TO THE PROCEDURE ROOM AND PLACED IN THE SITTING POSITION. THE AREA WAS CLEANED WITH ALCOHOL. THE PROCEDURE WAS DONE USING ASEPTIC STERILE TECHNIQUES. I CHECKED LATERALITY AND THE LEVEL WHERE THE PROCEDURE WAS GOING TO BE PERFORMED WITH THE PATIENT AND THE SUPPORTING STAFF AT THE MOMENT OF THE TIME OUT IN THE PROCEDURE ROOM. USING A 25-GAUGE NEEDLE, TRIGGER POINTS WERE INJECTED AT THE RIGHT AND LEFT NECK AREA AND RIGHT AND LEFT THORACIC AREA WITH A TOTAL OF 40 ML OF BUPIVACAINE 0.25%. AGREED WITH THE PATIENT THE PROCEDURE WAS DONE WITHOUT STEROIDS. THERE WAS NO EVIDENCE OF BLOOD, PARESTHESIA OR CEREBROSPINAL FLUID DURING THE PROCEDURE. THE PATIENT WAS SENT TO THE RECOVERY ROOM. THE PATIENT WAS MOVING THE EXTREMITIES AND DOING WELL. THERE WAS NO COMPLICATION DURING THE PROCEDURE. POST PROCEDURE NOTE THE PATIENT WILL BE SEEN IN A FOLLOW UP IN THE NEXT FEW WEEKS. I AM LOOKING FOR LONG LASTING PAIN RELIEF FOR THE PATIENT WITH THIS INJECTION. INSTRUCTIONS WERE GIVEN, QUESTIONS WERE ANSWERED, AND THE PATIENT EXPRESSED UNDERSTANDING AND AGREED WITH THE PLAN. I, DASH LARA, DOCUMENTED THE ABOVE INFORMATION ACTING A SCRIBE FOR DR. NEWTON. I HAVE REVIEWED THE ABOVE DOCUMENT, WRITTEN BY DASH CARTER AND I VERIFY THAT IT IS ACCURATE. PROCEDURE CODES 63685 INJECT TRIGGER POINTS 3/> DISPOSITION & COMMUNICATION FOLLOW UP 3 WEEKS ELECTRONICALLY SIGNED BY MATTHEW NEWTON MD, MD ON 12/22/2019 AT 10:07 AM EDT DISCLAIMER : THIS IS A VISIT SUMMARY EXTRACTED FROM THE [employer] CHART. IT IS NOT A COPY OF THE [employer] PROGRESS NOTE. MTDD
== END ==
LOC: M PAIN 09:45
PROVIDERS: ATTEND Anesthesiology
DX: M79.81 Nontraumatic hematoma of soft tissue (principal); Z79.899 Other long term (current) drug therapy; Z87.891 Personal history of nicotine dependence; Z88.8 Allergy status to other drugs, medicaments and biological substances
CPT/HCPCS: 20553; J3301

== ENCOUNTER → 2020-02-02 | Outpatient (CLI) | payer OTHER ==
--- NOTE | 2020-02-04 02:15 | ECWPNPC ---
PATIENT NAME: ULISES TEJADA : 1980 GENDER: FEMALE VISIT DATE: 02/02/2020 DISCHARGE DATE: 02/02/20927 VISIT LOCKED DATE TIME: PHYSICIAN: BRANDON TORRE RESOURCE: BRANDON TORRE REASON FOR APPOINTMENT 1. NECK PAIN [phone] - PAT COMPLETED HISTORY OF PRESENT ILLNESS HISTORY OF PRESENT ILLNESS: PAIN THE PATIENT DESCRIBES THE PAIN... PATIENT IS AGREEABLE TO TELEMED VISIT VIA ZOOM. THIS IS A FOLLOW-UP FOR PERSISTENT NECK AND UPPER BACK PAIN. HAS BEEN UNABLE TO MEET WITH MASSAGE THERAPIST DUE TO COVID 19. THIS TYPE OF THERAPY IS MOST HELPFUL. SHE WOULD ONLY CONSIDER INJECTIONS IF PAIN GOT OUT OF CONTROL. RATING PAIN LEVEL A 6/10 VAS. HAS RESPONDED TO TRIGGER POINT INJECTIONS WITH STEROIDS IN THE PAST. STATES IS RELUCTANT TO DO STEROID INJECTIONS DUE TO SOME ATROPHY IN THE MUSCLE TISSUE AT PREVIOUS INJECTION SITE. WE DISCUSSED THE POSSIBILITY OF HER HAVING MORE TREATMENTS IN THE FUTURE, BUT I WOULD HAVE DR. NEWTON EVALUATE TO SEE WHAT HE RECOMMENDS. PAIN IS AGGRAVATED BY SITTING AND LAYING DOWN. PAIN IS RELIEVED SOMEWHAT WITH STANDING UP AND STRETCHING. DISCUSSED TREATMENT OPTIONS. FALL RISK SCREENING: SCREENING :NO FALLS REPORTED IN THE LAST YEAR CURRENT MEDICATIONS TAKING VITAMIN D-3 1000 UNIT CAPSULE 3 CAPSULE ORALLY ONCE A DAY TAKING ARMOUR THYROID 90 MG TABLET 1 TABLET 4 DAYS A WEEK 75MG 3 AYS A WEEK ORALLY ONCE A DAY TAKING CYCLOBENZAPRINE HCL 5 MG TABLET 1 TABLET NEEDED ORALLY THREE TIMES A DAY NEEDED FRO NECK PAIN TAKING CALCIUM 1200 _ TABLET CHEWABLE 1500 UNITS 1 TABLET WITH A MEAL ORALLY ONCE A DAY TAKING MUCINEX 600 MG TABLET EXTENDED RELEASE 12 HOUR 1 TABLET NEEDED ORALLY EVERY 12 HRS, NOTES: NEEDED MEDICATION LIST REVIEWED AND RECONCILED WITH THE PATIENT PAST MEDICAL HISTORY HEADACHES (IMPROVED SINCE STOPPING ORTHO EVRA PATCH) MULTINODULAR THYROID/GOITER , THYROID ULTRASOUND 12/09/11 MULTINODULAR THYROID/ BIOPSY 07/09(DR RAZA) SUGGESTED BACKGROUND LYMPHOCYTIC THYROIDITIS. RECOMMENDED REPEAT ULTRASOUND AND BIOPSY ONE YEAR (07/10). [facility] SECOND OPINION - UNDERWENT THYROIDECTOMY FAMILY H/O MELANOMA - MOTHER/AUNT HYPOTHYROIDISM DUE TO THYROIDECTOMY POSITIVE ОЛЕГ - EVALUATED BY LOCAL RHEUMATOLOGY - NO FURTHER WKUP NEEDED ALLERGIES SUMAC: ANAPHYLAXIS - ALLERGY TEGADERM: RASH - ALLERGY SURGICAL HISTORY 05/2008, 01/2012 ALL FOUR WISDOM TEETH EXTRACTED 1998 THYROID BX-NEGATIVE 07/09 ABLASION-UTERUS 2014 THYROIDECTOMY FAMILY HISTORY FATHER: ALIVE, SQUAMOUS CELL CARCINOMA MOUTH, THYROID CANCER, PROSTATE CANCER MOTHER: ALIVE, HYPOTHYROIDISM, MELANOMA ON FACE MATERNAL AUNT: BREAST CANCER MELANOMA 2 BROTHER(S) - HEALTHY. 1 SON(S) , 1 DAUGHTER(S) - HEALTHY. FAMILY HISTORY OF MMMOTHER HAD MASTECTOMY. SOCIAL HISTORY GENERAL: TOBACCO USE ARE YOU A:FORMER SMOKER FORMER SMOKER HOW LONG HAS IT BEEN SINCE YOU LAST SMOKED?> 10 YEARS LATEX QUESTIONNAIRE LATEX ALLERGY : HAVE YOU EVER DEVELOPED ANY TYPE OF REACTION AFTER HANDLING LATEX PRODUCTS SUCH RUBBER GLOVES, CONDOMS, DIAPHRAGMS, BALLOONS, SOCKS, OR UNDERWEAR?NO LATEX ALLERGY : HAVE YOU EVER DEVELOPED ANY TYPE OF REACTION DURING OR AFTER DENTAL APPOINTMENT, VAGINAL/RECTAL EXAMINATION, SURGICAL PROCEDURE, OR ANY OTHER EXPOSURE?NO LATEX RISK : HAVE YOU EVER HAD ANY DIFFICULTY BREATHING OR HIVES AFTER EATING OR HANDLING ANY FRUITS, OR VEGETABLES; SUCH KIWI, BANANAS, STONE FRUITS, OR CHESTNUTSNO LATEX RISK : DO YOU HAVE A PREVIOUS PERSONAL HISTORY OF MORE THAN NINE SURGERIES, SPINA BIFIDA, OR REPEATED CATHERIZATIONS? NO LATEX RISK : ARE YOU FREQUENTLY EXPOSED TO LATEX PRODUCTS IN YOUR OCCUPATION?NO DATE ASKED : 01/27/2020 ALCOHOL SCREENING DID YOU HAVE A DRINK CONTAINING ALCOHOL IN THE PAST YEAR?NO POINTS0 INTERPRETATIONNEGATIVE RECREATIONAL DRUG USE DENIES. CAFFEINE NONE. SEXUAL HX HAD SEX IN THE LAST 12 MONTHS (VAGINAL, ORAL, OR ANAL)?YES WITHMEN ONLY USE PROTECTION?NO LMP:2014 HAVE YOU EVER HAD AN STD?NO MORMON NO JAINISM BELIEFS THAT WOULD IMPACT HEALTH CARE. LANGUAGE BURKINAN. LEARNING BARRIERS / SPECIAL NEEDS CHANGE FROM LAST VISIT?NO BARRIERS TO LEARNING?NO HEARING IMPAIRED?NO VISION IMPAIRED?NO COGNITIVELY IMPAIRED?NO READINESS TO LEARN?YES LEARNING PREFERENCES?NO LEARNING CAPABILITIES PRESENT?YES EMOTIONAL BARRIERS?NO SPECIAL DEVICES?NO TITLE VEHICLE SERVICE ATTENDANT NEEDED?NO DOMESTIC VIOLENCE NONE. OCCUPATION: FT STUDENT, [employer]. DIET: REGULAR. EXERCISE: NONE. NEW PATIENT PAIN DIARY TODAY'S VISITNOTES 02/01/2020 PATIENT DESCRIBES PAIN :BURNING, IT COMES AND GOES FROM 0-10, WHAT LEVEL IS YOUR PAIN TODAY?6 PRECIPITATING FACTORS ACTIVITY, LAYING DOWN ALLEVIATING FACTORS REST, STANDING IMPACT ON FUNCTION NO PAIN CLINIC PFS, CLERGY, PUBLIC HEALTH REFERRALS HAS THE PATIENT BEEN EDUCATED REGARDING HIS/HER PLAN OF CARE?YES HAS THE PATIENT BEEN EDUCATED REGARDING PAIN, THE RISK FOR PAIN, THE IMPORTANCE OF EFFECTIVE PAIN MANAGEMENT, AND THE PAIN ASSESSMENT PROCESS?YES ADVANCE DIRECTIVE ADVANCE DIRECTIVE DISCUSSED WITH PATIENT:YES PT DOES NOT HAVE ANY ADVANCED DIRECTIVES AND SHE DECLINES INFORMATION ON HCP AT THIS TIME. HOSPITALIZATION/MAJOR DIAGNOSTIC PROCEDURE CHILDBIRTH SURGERY REVIEW OF SYSTEMS REVIEWED BY: PROVIDER: BRANDON LAZARO . CONSTITUTIONAL: ANY CHANGE IN YOUR MEDICAL CONDITION? NO . CHILLS NO . FEVER NO . INFECTION: DO YOU HAVE NEW INFECTIONS? NO . DO YOU HAVE HISTORY OF MRSA? NO . MUSCULOSKELETAL: ANY NEW PATTERNS OF PAIN OR NUMBNESS? NO . GASTROENTEROLOGY: ANY NEW CHANGE IN BOWEL CONTROL? NO . GENITOURINARY: ANY NEW CHANGE IN BLADDER CONTROL? NO . IS THERE A CHANCE YOU COULD BE ? NO . HEMATOLOGY/LYMPH: DO YOU TAKE ANY BLOOD THINNERS? (FOR EXAMPLE- COUMADIN, PLAVIX, AGGRENOX, PLATEL, PRADAXA, OR XARELTO) NO . WHEN WAS YOUR LAST DOSE? DATE: TIME: . NEUROLOGY: HAVE YOU FALLEN IN THE PAST 12 MONTHS? NO . ANY NEW EXTREMITY NUMBNESS OR WEAKNESS? NO . CARDIOLOGY: DO YOU HAVE A PACEMAKER OR DEFIBRILLATOR? NO . RESPIRATORY: HAVE YOU BEEN SICK IN THE PAST WEEK? NO . FEVER NO . FLU LIKE SYMPTOMS? NO . COUGH NO . INTEGUMENTARY: DO YOU HAVE ANY RASHES OR OPEN SORES? NO . ALLERGIC/IMMUNO: ARE YOU ALLERGIC TO IV DYE? NO . ANY NEW ALLERGIES? NO . PSYCHIATRIC: DO YOU HAVE THOUGHTS OF HURTING YOURSELF OR SOMEONE ELSE? NO . ARE YOU ABUSED, NEGLECTED, OR IN AN UNSAFE ENVIRONMENT? NO . ENDOCRINOLOGY: ARE YOU DIABETIC? NO . OTHER: DO YOU NEED ANY PRESCRIPTIONS? NO . IF YES, PLEASE LIST: ____ . ANY NEW PROBLEMS WITH YOUR MEDICATIONS? NO . WHEN DID YOU LAST EAT? ____ . WHEN DID YOU LAST DRINK? ____ . WHAT DID YOU LAST DRINK? ____ . NAME OF PERSON DRIVING YOU HOME? ____ . DO YOU HAVE ANY OTHER QUESTIONS OR CONCERNS YES, WOULD LIKE TO GET BACK TO HER MASSAGE THERAPY SOON POSSIBLE ONCE THEY RE-OPEN IT PROVIDED A GREAT DEAL OF RELIEF WHEN SHE WAS ABLE TO GO BEFORE THE PANDEMIC SHUT-DOWN HAPPENED . EXAMINATION GENERAL EXAMINATION: GENERALNO ACUTE DISTRESS, WELL NOURISHED AND HYDRATED. PSYCHAPPROPRIATE MOOD AND AFFECT . FACE:UNREMARKABLE. ASSESSMENTS MYALGIA, OTHER SITE - M79.18 (PRIMARY) TREATMENT MYALGIA, OTHER SITE NOTES: PATIENT WOULD LIKE TO WAIT UNTIL COVID 19 PRECAUTIONS ARE LIFTED. SHE WILL ATTEND MASSAGE THERAPY WHEN SHE IS ABLE TO. SHE WILL CALL US IF SHE NEEDS TO BE CONSIDERED FOR INJECTION THERAPY. TOTAL TIME SPENT DURING TELEMED VISIT WAS APPROXIMATELY 12 MINUTES. OTHERS NOTES: NO VITALS OBTAINED DUE TO VIRTUAL VISIT. DISPOSITION & COMMUNICATION FOLLOW UP PATIENT WILL CALL TO SCHEDULE APPOINTMENT IF NECESSARY (REASON: NECK PAIN) ELECTRONICALLY SIGNED BY IVETH CHOW ON 02/03/2020 AT 01:35 PM EDT DISCLAIMER : THIS IS A VISIT SUMMARY EXTRACTED FROM THE [employer] CHART. IT IS NOT A COPY OF THE [employer] PROGRESS NOTE. OWEN
== END ==
LOC: M PAIN 09:00 → M TMPAIN 09:00
PROVIDERS: ATTEND Nurse Practitioner Family
DX: M79.18 Myalgia, other site (principal); Z79.899 Other long term (current) drug therapy; Z87.891 Personal history of nicotine dependence; Z88.8 Allergy status to other drugs, medicaments and biological substances

== ENCOUNTER → 2020-03-20 | Outpatient (REF) | payer OTHER | LOC: M LAB REF 17:13 | PROVIDERS: ATTEND Physician Assistant | DX: D22.20 Melanocytic nevi of unspecified ear and external auricular canal (principal) ==

== ENCOUNTER → 2020-08-10 | Outpatient (REF) | payer OTHER ==
[2020-08-10 14:20] LABS: FREE T4 0.75 NG/DL (0.76-1.46); THYROID STIMULATING HORMONE 0.475 uIU/ML (0.358-3.740)
[2020-08-11 13:07] LABS: THRYOGLOBULIN ANTIBODIES (ATA) < 1.0 IU/mL (0.0-0.9); THYROGLOBULIN QUANTITATIVE < 0.1 ng/mL (1.5-38.5)
== END ==
LOC: M LABDRWAD 12:18
PROVIDERS: ATTEND Internal Medicine Endocrinology, Diabetes & Metabolism
DX: E89.0 Postprocedural hypothyroidism (principal)

== ENCOUNTER → 2020-08-16 | Outpatient (CLI) | payer OTHER ==
--- NOTE | 2020-08-16 09:17 | REPMRS ---
Patient History The patient states she has not had a clinical breast exam in over a year. Patient has history of thyroid cancer at age 32. Family history of breast cancer at age 65 in mother, breast cancer at age 48 in maternal aunt, breast cancer in maternal grandmother, prostate cancer at age 45 in father, prostate cancer in paternal grandfather. Taking unspecified hormones for 6 years. 3D TOMOSYNTHESIS WAS PERFORMED. [place] [facility] breast density b. Digital Woman Screen Mammo: August 16, 2020 - Exam #: [id number] Bilateral CC and MLO view(s) were taken. Technologist: Joann Allison, Technologist Prior study comparison: August 15, 2019, bilateral digital mammo screening bilat, performed at [facility]. FINDINGS: The breast tissue is heterogeneously dense. This may lower the sensitivity of mammography. There has been no change in the appearance of the mammogram from the prior studies. There is a moderate amount of residual fibroglandular tissue which is fairly symmetric. There is no interval development of dominant mass, areas of architectural distortion, or clustered microcalcification typical of malignancy. Assessment: BI-RADS/ACR category 1 mammogram. Negative Mammogram. Recommendation Routine screening mammogram in 1 year (for women over age 40). This mammogram was interpreted with the aid of an FDA-approved computer-aided dectection system. THE LIFETIME RISK OF BREAST CANCER IS 28.5%, THEREFORE SUPPLEMENTAL SCREENING MRI OF THE BREASTS IS RECOMMENDED IN 6 MONTHS. Electronically Signed By: Tommy Finch MD 08/16/20 0916
== END ==
LOC: M WHC 07:59
PROVIDERS: ATTEND Nurse Practitioner Women's Health
DX: Z12.31 Encounter for screening mammogram for malignant neoplasm of breast (principal); Z80.3 Family history of malignant neoplasm of breast; Z85.850 Personal history of malignant neoplasm of thyroid; Z79.899 Other long term (current) drug therapy

== ENCOUNTER → 2021-03-08 | Outpatient (CLI) | payer OTHER ==
[~2021-03-08] MED LIST changes: -BUPIVACAINE HCL 0.25% 30 ML VIAL As Ordered ONE; +PROHANCE 279.3MG/ML 15ML VIAL As Ordered ONE; +PROHANCE 279.3MG/ML 5ML VIAL As Ordered ONE; -TRIAMCINOLONE ACETONIDE SUSP 40 MG/ML VIAL (J3301) As Ordered ONE; -diazePAM 5 MG TAB As Ordered ONE
--- NOTE | 2021-03-08 11:47 | REP ---
INDICATION: FAM HX OF BREAST CA, DENSE BREAST. COMPARISON: Mammogram 08/16/2020. TECHNIQUE: Three Nichole MRI imaging was performed with a dedicated breast coil. Axial, coronal, and sagittal T1 and T2 weighted scans were obtained with and without fat saturation in the usual fashion. The study includes dynamically acquired post gadolinium-enhanced imaging with image subtraction. Maximum intensity projection and multi planar reformation imaging is included as well. This study is interpreted with the aid of [employer], an FDA approved computer aided detection (CAD) software program, on a dedicated breast MRI workstation. The gadolinium enhancement dose is 16 mL of intravenous ProHance. FINDINGS: There is moderate symmetrical fibroglandular tissue bilaterally. There is no significant axillary adenopathy bilaterally. There is a subcentimeter cyst at 12 o'clock in the left breast. Otherwise no significant cystic change is seen in either breast. There is mild to moderate background parenchymal enhancement bilaterally. In the upper inner left breast there is an oval nodule which is hyperintense on T2 weighted images, with a few thin internal hypointense septations. This demonstrates very mild type 1 enhancement, with no enhancement of the septations. This is consistent with a small fibroadenoma. There is no suspicious enhancing mass or morphologic abnormality bilaterally. IMPRESSION: BI-RADS category 2 benign bilateral breast MRI. Subcentimeter cyst and fibroadenoma in the upper left breast. No suspicious enhancing mass or morphologic abnormality. Yearly supplemental screening MRI of the breasts is recommended for patients with an elevated lifetime risk of breast cancer of 20% or greater, in addition to annual screening mammography, staggered every 6 months. <Electronically signed by Tommy Finch > 03/08/21 0993
== END ==
LOC: M RAD 08:56
PROVIDERS: ATTEND Nurse Practitioner Women's Health
DX: Z91.89 Other specified personal risk factors, not elsewhere classified (principal); Z80.3 Family history of malignant neoplasm of breast; R92.2 Inconclusive mammogram; N60.02 Solitary cyst of left breast; D24.2 Benign neoplasm of left breast
CPT/HCPCS: 77049; A9576

== ENCOUNTER → 2021-03-11 | Outpatient (REF) | payer OTHER ==
[2021-03-11 15:17] LABS: FREE T4 0.84 NG/DL (0.76-1.46); THYROID STIMULATING HORMONE 0.271 uIU/ML (0.358-3.740)
== END ==
LOC: M LABDRWAD 13:38
PROVIDERS: ATTEND Internal Medicine Endocrinology, Diabetes & Metabolism
DX: E89.0 Postprocedural hypothyroidism (principal)

== ENCOUNTER → 2021-03-20 | Outpatient (REF) | payer OTHER ==
[2021-03-20 13:24] LABS: HEMATOCRIT 42.2 % (36.0-47.0); HEMOGLOBIN 13.8 g/dl (12.0-15.5)
== END ==
LOC: M SFHCADAM 10:43
PROVIDERS: ATTEND Physician Assistant
DX: E03.9 Hypothyroidism, unspecified (principal)

== ENCOUNTER → 2021-04-26 | Outpatient (REF) | payer OTHER ==
[2021-04-26 13:45] LABS: FREE T3 5.8 PG/ML (2.2-4.0); FREE T4 0.95 NG/DL (0.76-1.46); THYROID STIMULATING HORMONE 0.198 uIU/ML (0.358-3.740)
== END ==
LOC: M LABDRWAD 12:29
PROVIDERS: ATTEND Internal Medicine Endocrinology, Diabetes & Metabolism
DX: E89.0 Postprocedural hypothyroidism (principal)

== ENCOUNTER → 2021-09-10 | Outpatient (REF) | payer OTHER | LOC: M SFHCPLAZ 17:02 | PROVIDERS: ATTEND Physician Assistant | DX: J02.9 Acute pharyngitis, unspecified (principal) ==

== ENCOUNTER → 2021-10-18 | Outpatient (CLI) | payer OTHER | LOC: M WHC 14:03 | PROVIDERS: ATTEND Specialist | DX: Z12.31 Encounter for screening mammogram for malignant neoplasm of breast (principal); Z80.3 Family history of malignant neoplasm of breast; Z80.42 Family history of malignant neoplasm of prostate ==

== ENCOUNTER → 2021-10-18 | Outpatient (CLI) | payer OTHER | LOC: M WHC 13:25 | PROVIDERS: ATTEND Specialist | DX: Z53.9 Procedure and treatment not carried out, unspecified reason (principal) ==

== ENCOUNTER → 2021-10-18 | Outpatient (REF) | payer OTHER | LOC: M SFHCWAGY 17:26 | PROVIDERS: ATTEND Specialist | DX: Z12.4 Encounter for screening for malignant neoplasm of cervix (principal) ==

== ENCOUNTER → 2022-01-13 | Outpatient (REF) | payer OTHER ==
[2022-01-13 17:33] LABS: ALBUMIN 4.1 GM/DL (3.2-5.2); BLOOD UREA NITROGEN 13 MG/DL (7-18); CALCIUM LEVEL 9.1 MG/DL (8.5-10.1); CARBON DIOXIDE LEVEL 29 MEQ/L (21-32); CHLORIDE LEVEL 108 MEQ/L (98-107); CREATININE FOR GFR 0.68 MG/DL (0.55-1.30); GLOMERULAR FILTRATION RATE > 60.0 (>58); GLUCOSE, FASTING 79 MG/DL (70-100); PHOSPHORUS LEVEL 2.8 MG/DL (2.5-4.9); POTASSIUM SERUM 3.8 MEQ/L (3.5-5.1); SODIUM LEVEL 141 MEQ/L (136-145); THYROGLOBULIN ANTIBODY 15.8 U/ML (<60.0); THYROID STIMULATING HORMONE 0.031 uIU/ML (0.358-3.740)
== END ==
LOC: M LABDRWAD 16:10
PROVIDERS: ATTEND Internal Medicine Endocrinology, Diabetes & Metabolism
DX: C73 Malignant neoplasm of thyroid gland (principal)

== ENCOUNTER → 2022-02-26 | Outpatient (CLI) | payer OTHER ==
[2022-02-26 13:45] LABS: ALBUMIN 4.1 GM/DL (3.2-5.2); BLOOD UREA NITROGEN 14 MG/DL (7-18); CALCIUM LEVEL 8.7 MG/DL (8.5-10.1); CARBON DIOXIDE LEVEL 30 MEQ/L (21-32); CHLORIDE LEVEL 108 MEQ/L (98-107); CREATININE FOR GFR 0.74 MG/DL (0.55-1.30); FREE T4 0.69 NG/DL (0.76-1.46); GLOMERULAR FILTRATION RATE > 60.0 (>58); GLUCOSE, FASTING 80 MG/DL (70-100); PHOSPHORUS LEVEL 3.4 MG/DL (2.5-4.9); POTASSIUM SERUM 3.8 MEQ/L (3.5-5.1); SODIUM LEVEL 139 MEQ/L (136-145); THYROGLOBULIN ANTIBODY 24.2 U/ML (<60.0)
[2022-02-27 11:08] LABS: THRYOGLOBULIN ANTIBODIES (ATA) < 1.0 IU/mL (0.0-0.9); THYROGLOBULIN QUANTITATIVE < 0.1 ng/mL (1.5-38.5)
== END ==
LOC: M ADAMS 11:14
PROVIDERS: ATTEND Internal Medicine Endocrinology, Diabetes & Metabolism
DX: C73 Malignant neoplasm of thyroid gland (principal); E89.0 Postprocedural hypothyroidism